=== PATIENT | male | born 1950 | race Caucasian/White ===

== ENCOUNTER 2024-09-19 06:48 | Emergency (ER) | payer MEDICARE, SELFPAY ==
[2024-09-19] VITALS (10 sets, daily range): BP systolic 164–203; BP diastolic 81–116; BMI 26.3
[2024-09-19] MEDS: DEXTROSE 50% SYRINGE 25 GRAMS IV (07:20)
[2024-09-19 07:24] LABS: Glucose - Point of Care 44 mg/dl (70-99)
--- NOTE | 2024-09-19 07:32 | EDRN ---
the pt was received from triage confused, and 'not making sense' per the pts son and daughter, the pt was pleasantly confused and color was yan and the pt was diaphoretic, this RN checked a blood glucose and found that the pts blood sugar was 44,
this RN immediately notified provider Polo YEN and administered an AMP of Dextrose via RFA #20 PIV that was placed, shortly after administration the pt started to come around and was alert and oriented to the situation, the pt stated to
this RN, 'I felt very confused and i was in a cold sweat, did i have hypoglycemia again?', this RN confirmed with the pt that he was hypoglycemic and was treated for it, the pt is on the monitor, VS WNL, the pt is resting in stretcher in the lowest
position, side rails up x2, call ponce within reach, HOB elevated, will continue to monitor the pt closely
[2024-09-19 07:33] LABS: % Basophils 0.5 % (0-2); % Eosinophils 2.6 % (0-6); % Immature Granulocytes 0.5 % (0-0.5); % Lymphocytes 13.3 % (20.5-51.1); % Monocytes 6.1 % (1.7-9.3); Absolute Basophils 0.1 10^3/uL (0-0.2); Absolute Eosinophils 0.3 10^3/uL (0-0.7); Absolute Immature Granulocytes 0.1 10^3/uL (0-0.05); Absolute Lymphocytes 1.5 10^3/uL (1.2-3.4); Absolute Monocytes 0.7 10^3/uL (0.1-0.6); Absolute Neutrophils 8.7 10^3/uL (1.4-6.5); Hematocrit 26.2 % (39.0-52.0); Hemoglobin 9.4 g/dL (13.0-18.0); Mean Corp Hgb Conc. 35.9 g/dL (33.0-37.0); Mean Corpuscular Hgb 30.2 pg (27.0-31.0); Mean Corpuscular Volume 84.2 fL (80.0-94.0); Mean Platelet Volume 9.4 fL (7.4-10.4); Nucleated Red Blood Cells % 0 % (-); Platelet Count 234 10^3/uL (130-400); Red Blood Cell Count 3.11 10^6/uL (4.70-6.10); Red Cell Dist. Width 13.5 % (11.5-14.5); White Blood Cell Count 11.2 10^3/uL (4.8-10.8)
[2024-09-19 07:45] LABS: Glucose - Point of Care 180 mg/dl (70-99)
--- NOTE | 2024-09-19 07:47 | EDRN ---
Polo YEN currently at the pts bedside speaking to the pt and the pts family, the pt admits to taking Basaglar 80units SC two hours before arriving to the ED and claims he has not eaten anything, an ER lunch box was provided to the pt per
provider
[2024-09-19 08:01] LABS: ALT (SGPT) 25 U/L (0-50); AST (SGOT) 26 U/L (17-59); Albumin 4.8 g/dl (3.5-5.0); Alkaline Phosphatase 100 U/L (38-126); Blood Urea Nitrogen 50 mg/dl (9-20); Calcium 9.7 mg/dl (8.4-10.2); Carbon Dioxide 19 mmol/L (22-30); Chloride 109 mmol/L (98-107); Estimated Creatinine Clearance 12 ml/min; Glucose 41 mg/dl (70-99); Potassium 3.6 mmol/L (3.5-5.1); Sodium 145 mmol/L (135-145); Total Bilirubin 0.9 mg/dl (0.2-1.3); Total Protein 7.6 g/dl (6.3-8.2); eGFR 11.13
[2024-09-19 08:04] LABS: Glucose - Point of Care 132 mg/dl (70-99)
--- NOTE | 2024-09-19 08:21 | ED.GENMED ---
History of Present Illness
General
Chief Complaint: Change in Mental Status
Source: patient and family
Time Seen by Provider: 09/19/24 07:06
History of Present Illness
History of Present Illness:
73-year-old male with past medical history of hypertension, diabetes, chronic kidney disease, previous TIA presenting to the ER with family reporting altered mental status this morning that was noted around 5 AM. Patient lives with daughter who
states that she found the patient in bed, not answering questions and moaning. On arrival here patient with similar disposition, [id number] glucose was checked and found to be in the low 30s. Patient treated with dextrose with improvement. By
the time I was able to get into the room patient was fully awake alert and oriented and had no concerns. Patient does note that he saw his primary care provider about a week or so ago and due to worsening kidney dysfunction was to of his metformin.
It was noted at that time patient also had significantly elevated blood pressures and had his nifedipine increased and was recommended to follow-up with nephrology. Patient states he did call the office but was unable to speak to anybody so was
unfortunately unable to make an appointment but states he was planning on calling today in follow-up. Patient denies any fevers, chills, rigors. He does state that he took his 80 units of Basaglar this morning around 2 to 3 hours prior to coming
to the ER but did not eat anything after taking the Basaglar.
Past History
Past History
ED Past Medical History: CVA, HTN, IDDM and Renal failure
ED Past Surgical History: None
Social History
Tobacco: Non-smoker
Alcohol: None
Drug: None
Living: with family
Employment: Not employed
Review of Systems
Review of Systems
All Other Systems: ROS reviewed and negative except as documented in HPI and ROS
Phy Exam
Physical Exam
Physical Exam:
GENERAL: Alert , in no apparent distress
HEAD: NCAT
EYE: clear conjunctiva
NECK: Supple
ENT: mmm.
CARDIAC: Regular rate and rhythm .
LUNGS: Clear breath sounds bilaterally, no acute respiratory distress, no wheezes/rales/rhonchi
ABDOMEN: Soft, without focal tenderness, no r/g, no cvat
NEUROLOGICAL: Alert and oriented, no focal neuro deficits, AAOx3
SKIN: Warm and dry, skin intact.
MUSCULOSKELETAL: No edema, well perfused.
PSYCH: Normal and appropriate interaction.
Scores
Heart Failure Risk
Heart Failure Risk Score: Not Applicable
Heart Score for Chest Pain Patients
STEMI patient?: Not applicable
Withdrawal Assessment of Alcohol
Withdrawal Assessment Completed?: Not applicable
Course
Orders/Labs/Results
Orders:
Orders
09/19/24 07:17
Electrocardiogram (*1) Urgent
Reason for Study: Vertigo / Dizzy
EKG- Treatment ONCE
09/19/24 07:20
Dextrose 50%-Water [Dextrose 50% Syringe] 25 grams IV NOW STA
09/19/24 07:22
Complete Blood Count/With Diff Urgent
Comprehensive Metabolic Panel Urgent
09/19/24 07:24
Dextrose 50%-Water [Dextrose 50% Syringe] 25 grams .ROUTE .STK-MED ONE
09/19/24 09:30
Urinalysis Reflex To Culture Urgent
Date Specimen was Collected: 09/19/24
Time Specimen was Collected: 09:25
Urine Microscopic Reflex Cult Urgent
09/19/24 10:15
Bedside Glucose- Treatment ONCE
Abnormal Lab Results
09/19/24 09/19/24 09/19/24
07:20 07:22 07:43
WBC 11.2 H 10^3/uL
(4.8-10.8)
RBC 3.11 L 10^6/uL
(4.70-6.10)
Hgb 9.4 L g/dL
(13.0-18.0)
Hct 26.2 L %
(39.0-52.0)
Abs Immat Gran (auto) 0.1 H 10^3/uL
(0-0.05)
Absolute Neuts (auto) 8.7 H 10^3/uL
(1.4-6.5)
Absolute Monos (auto) 0.7 H 10^3/uL
(0.1-0.6)
Neutrophils % 77.0 H %
(42.2-75.2)
Lymphocytes % 13.3 L %
(20.5-51.1)
Chloride 109 H mmol/L
(98-107)
Carbon Dioxide 19 L mmol/L
(22-30)
BUN 50 H mg/dl
(9-20)
Creatinine 5.2 H* mg/dL
(0.7-1.3)
Glucose 41 L* mg/dl
(70-99)
Ur Occult Blood Reflex
Urine RBC
Urine Bacteria (Reflex)
Urine Glucose
Urine Albumin (Reflex)
POC Glucose 44 L* mg/dl 180 H mg/dl
(70-99) (70-99)
09/19/24 09/19/24 09/19/24
08:03 09:09 09:30
WBC
RBC
Hgb
Hct
Abs Immat Gran (auto)
Absolute Neuts (auto)
Absolute Monos (auto)
Neutrophils %
Lymphocytes %
Chloride
Carbon Dioxide
BUN
Creatinine
Glucose
Ur Occult Blood Reflex 1+ A
(Negative)
Urine RBC 3-6 A /HPF
(0-2)
Urine Bacteria (Reflex) Few A
(Negative)
Urine Glucose 1+ A
(Negative)
Urine Albumin (Reflex) 3+ A
(Neg - Trace)
POC Glucose 132 H mg/dl 141 H mg/dl
(70-99) (70-99)
09/19/24
10:16
WBC
RBC
Hgb
Hct
Abs Immat Gran (auto)
Absolute Neuts (auto)
Absolute Monos (auto)
Neutrophils %
Lymphocytes %
Chloride
Carbon Dioxide
BUN
Creatinine
Glucose
Ur Occult Blood Reflex
Urine RBC
Urine Bacteria (Reflex)
Urine Glucose
Urine Albumin (Reflex)
POC Glucose 219 H mg/dl
()
09/19/24 07:22
09/19/24 07:22
Vital Signs
Initial and Last Documented VS:
Initial Vital Signs
Temp Pulse Resp BP Pulse Ox
98.3 F 63 18 175/81 96
09/19/24 06:52 09/19/24 06:52 09/19/24 06:52 09/19/24 06:52 09/19/24 06:52
Last Documented Vital Signs
Temp Pulse Resp BP Pulse Ox
98.5 F 76 19 164/97 99
09/19/24 07:34 09/19/24 10:30 09/19/24 10:30 09/19/24 10:09 09/19/24 10:30
MDM/Problems Addressed
Differential Diagnosis Includes:
Hypoglycemia secondary to too much insulin, less concern for an infectious etiology, chronic kidney disease, hypertension
MDM/Problems Addressed:
73-year-old male presenting to the emergency department for evaluation of change in mental status found to have hypoglycemia on arrival. This was rapidly corrected with 25g dextrose with significant improvement in patient's symptoms. Following the
dextrose patient is fully awake alert and oriented x 3. There are certainly multiple chronic medical conditions playing a role in patient's visit to the ER. Will observe for any further signs of recurring hypoglycemia. Patient was given a food
tray. He is otherwise stable and in no acute distress.
Chronic conditions affecting care: DM and HTN
Acute Exacerbation and/or Progression of Chronic Illness: DM
*Pulse Oximetry
Patient hypoxic: no
*EKG
Interpreted by ED Provider?: Yes
Comparison EKG: no comparison EKG present
Heart Rate: 61
Rate: normal
Rhythm: sinus
Interval: first degree heart block
*Drying Room Supervisor Interpretation
Rate: normal
Rhythm: sinus
*Critical Care Note
Total Time (30-74mins, 75-104mins- exclusive of procedures): Not Applicable
Patient Management
Escalation/DeEscalation of care consider admission/obs:
On multiple rechecks patient's blood sugars remain greater than 120. He continues to feel well and is asking to be discharged home. Discussed with patient that if he is going to be giving himself insulin he needs to check his blood sugars before
taking the insulin as well as needs to either eat or drink something to counteract the insulin and prevent him from dropping his blood sugars too low patient will follow-up with his primary care provider as well as nephrology. Family taking patient
home and they are aware of return precautions.
ED Attending Note
-
Portions of this chart may have been created with voice recognition software.� Occasional wrong word or��sound alike� substitutions may have occurred due to the inherent limitations of voice recognition software.
Discharge Plan
Departure
Patient Disposition: Home (Routine Discharge)
Date of Disposition: 09/19/24
Time of Disposition: 10:31
Patient with high blood pressure during this ER visit?: Yes
Discharge Problem:
Hypoglycemia due to insulin, Hypertension, CKD (chronic kidney disease)
Instructions: Low Blood Sugar, Adult ED
Prescriptions:
No Action
clindamycin HCl 300 mg Capsule
300 mg PO TID
atorvastatin 10 mg Tablet
10 mg PO DAILY
clonidine HCl 0.3 mg Tablet
0.3 mg PO DAILY
nifedipine 30 mg Tablet Extended Release
30 mg PO DAILY
chlorthalidone 25 mg Tablet
25 mg PO DAILY
omeprazole 20 mg Capsule,Delayed Release(Dr/Ec)
20 mg PO DAILY
irbesartan 300 mg Tablet
300 mg PO DAILY
insulin glargine [Basaglar KwikPen U-100 Insulin] 100 unit/mL (3 mL) Insulin Pen
80 unit SC QPM
metoprolol succinate 200 mg Capsule,Sprinkle,Er 24hr
200 mg PO DAILY
acetaminophen [Tylenol] 325 mg Tablet
650 mg PO Q4HPRN PRN (Reason: mild pain)
Referrals:
Tomer Childress MD [Active] - (Nephrology)
Tesfaye Hernandez MD [Family Provider] -
Interventions
Interventions:
*Risk Screen - Suicide Last Done: 09/19/24 07:34
*General Assessment Last Done: 09/19/24 07:34
*Neglect/Abuse Screening Last Done: 09/19/24 07:34
ED- Fall Risk Assessment Last Done: 09/19/24 07:34
*ED COVID-19 Vaccine History Last Done: 09/19/24 06:57
*Nursing Disposition Last Done: 09/19/24 10:36
ED- Pulmonary Assessment Last Done: 09/19/24 07:34
ED-Psychological Assessment Last Done: 09/19/24 07:34
ED- Neurological Assessment Last Done: 09/19/24 07:34
ED- Cardiac Assessment Last Done: 09/19/24 07:34
ED Swallowing Screen Last Done: 09/19/24 07:34
Discharge Date and Time
Discharge Date/Time: 09/19/24 10:37
Print Language: ROMANSH
[2024-09-19 09:10] LABS: Glucose - Point of Care 141 mg/dl (70-99)
--- NOTE | 2024-09-19 09:10 | EDRN ---
the pt is resting in stretcher in the lowest position, side rails up x1, HOB elevated, no s/s of distress, the pt is on the monitor, the pt is hypertensive and Polo YEN was notified, the pt was able to ambulate to the bathroom
independently with no issues and was able to provide a urine sample, will continue to monitor the pt closely
[2024-09-19 09:44] LABS: Urine Albumin 3+ (Neg - Trace); Urine Bilirubin Negative (Negative); Urine Character Clear (Clear); Urine Color Yellow; Urine Glucose 1+ (Negative); Urine Ketone Negative (Negative); Urine Leukocyte Negative (Negative); Urine Nitrite Negative (Negative); Urine Occult Blood 1+ (Negative); Urine Specific Gravity 1.015 (<1.030); Urine Urobilinogen Negative (Neg - 1+)
--- NOTE | 2024-09-19 09:52 | EDRN ---
the pt is currently still hypertensive, provider Polo Crooks was notified, the pt states to this RN, 'Can i leave yet i am just up and ready to go', this RN notified the pt that he will be here for at least another half hour per the provider,
the pt is agreeable to this, will continue to monitor the pt closely
[2024-09-19 10:18] LABS: Glucose - Point of Care 219 mg/dl (70-99)
[2024-09-19 10:24] LABS: Urine Bacteria Few (Negative)
== END 2024-09-19 10:37 | disposition home or self-care (01) ==
LOC: EMR 06:48
PROVIDERS: Physician Assistant Medical; EMERGENCY PHYSICIAN Student in an Organized Health Care Education/Training Program; FAMILY PHYSICIAN Internal Medicine
DX: E11.649 Type 2 diabetes mellitus with hypoglycemia without coma (principal); T38.3X5A Adverse effect of insulin and oral hypoglycemic [antidiabetic] drugs, initial encounter; Z79.4 Long term (current) use of insulin; E11.22 Type 2 diabetes mellitus with diabetic chronic kidney disease; I12.9 Hypertensive chronic kidney disease with stage 1 through stage 4 chronic kidney disease, or unspecified chronic kidney disease; N18.9 Chronic kidney disease, unspecified; Z86.73 Personal history of transient ischemic attack (TIA), and cerebral infarction without residual deficits
CPT/HCPCS: 99284; 96374; 80053; 81003; 81015; 82962; 85025; 93005

== ENCOUNTER 2024-10-19 20:14 | Inpatient (IN) | payer MEDICARE, SELFPAY ==
[2024-10-19] VITALS (13 sets, daily range): BP systolic 113–212; BP diastolic 59–83; BMI 20.4
[2024-10-19 13:55] LABS: Glucose - Point of Care > 600 mg/dl (70-99)
[2024-10-19 14:19] LABS: % Basophils 0.5 % (0-2); % Eosinophils 2.6 % (0-6); % Immature Granulocytes 0.3 % (0-0.5); % Lymphocytes 10.4 % (20.5-51.1); % Monocytes 8.9 % (1.7-9.3); % Neutrophils 77.3 % (42.2-75.2); Absolute Eosinophils 0.2 10^3/uL (0-0.7); Absolute Lymphocytes 0.7 10^3/uL (1.2-3.4); Absolute Monocytes 0.6 10^3/uL (0.1-0.6); Absolute Neutrophils 5.1 10^3/uL (1.4-6.5); Hematocrit 24.6 % (39.0-52.0); Hemoglobin 9.1 g/dL (13.0-18.0); Mean Corpuscular Hgb 30.1 pg (27.0-31.0); Mean Corpuscular Volume 81.5 fL (80.0-94.0); Mean Platelet Volume 9.7 fL (7.4-10.4); Nucleated Red Blood Cells % 0 % (-); Platelet Count 224 10^3/uL (130-400); Red Blood Cell Count 3.02 10^6/uL (4.70-6.10); Red Cell Dist. Width 11.9 % (11.5-14.5); White Blood Cell Count 6.6 10^3/uL (4.8-10.8)
[2024-10-19 14:48] LABS: Albumin 4.5 g/dl (3.5-5.0); Alkaline Phosphatase 123 U/L (38-126); Blood Urea Nitrogen 62 mg/dl (9-20); Calcium 9.4 mg/dl (8.4-10.2); Carbon Dioxide 17 mmol/L (22-30); Chloride 92 mmol/L (98-107); Sodium 126 mmol/L (135-145); eGFR 9.37
[2024-10-19 14:49] LABS: ALT (SGPT) 18 U/L (0-50); AST (SGOT) 17 U/L (17-59); Total Bilirubin 1.2 mg/dl (0.2-1.3)
[2024-10-19 15:04] LABS: Glucose 835 mg/dl (70-99)
--- NOTE | 2024-10-19 16:20 | ED.GENMED ---
History of Present Illness
General
Chief Complaint: Blood Sugar Problem
Time Seen by Provider: 10/19/24 15:27
History of Present Illness
History of Present Illness:
Patient is a 73-year-old male with history of diabetes on insulin, stage V CKD with plans for dialysis, hypertension presenting to the emergency room with elevated blood sugar. Patient states he went to his primary care doctor today as he notes
that his leg has been having some cramping and twitches. He does state that he feels dehydrated. When he went to his primary care his blood sugar was over 400. He states that he has been without his insulin for the past 10 days. He is on
glargine. No adding sliding scale. He has been in DKA once before. He states that he feels dehydrated but otherwise denies any chest pain difficulty breathing nausea vomiting. No recent illnesses or infections.
Past History
Past History
ED Past Medical History: CVA, HTN, IDDM and Renal failure
ED Past Surgical History: None
Social History
Tobacco: Non-smoker
Alcohol: None
Drug: None
Living: with family
Employment: Not employed
Phy Exam
Physical Exam
Physical Exam:
GENERAL: in no acute distress
HEENT: normocephalic, extraocular movements intact, dry oral mucosa
NECK: normal inspection
RESPIRATORY: no respiratory distress, clear to auscultation bilaterally
CARDIOVASCULAR: regular rate and rhythm
ABDOMEN/: soft, non-distended, non-tender to palpation, no rebound or guarding
EXTREMITIES: non-tender, no edema/swelling
NEUROLOGIC: awake and alert, moves all extremities
SKIN: warm
Course
Orders/Labs/Results
Orders:
Orders
10/19/24 14:03
B-Hydroxybutyrate Urgent
Comment: ADD ON
Complete Blood Count/With Diff Urgent
Comprehensive Metabolic Panel Urgent
10/19/24 15:29
Add On- LAB Urgent
Tests Added?: beta hydroxybuterate
10/19/24 16:04
0.9% Sodium Chloride 1000 ml [Nss] 1,000 ml IV BOLUS
10/19/24 16:25
Urinalysis Reflex To Culture Urgent
Date Specimen was Collected: 10/19/24
Time Specimen was Collected: 16:22
Urine Microscopic Reflex Cult Urgent
Abnormal Lab Results
10/19/24 10/19/24 10/19/24
13:54 14:03 16:25
RBC 3.02 L 10^6/uL
(4.70-6.10)
Hgb 9.1 L g/dL
(13.0-18.0)
Hct 24.6 L %
(39.0-52.0)
Absolute Lymphs (auto) 0.7 L 10^3/uL
(1.2-3.4)
Neutrophils % 77.3 H %
(42.2-75.2)
Lymphocytes % 10.4 L %
(20.5-51.1)
Sodium 126 L mmol/L
(135-145)
Chloride 92 L mmol/L
(98-107)
Carbon Dioxide 17 L mmol/L
(22-30)
BUN 62 H mg/dl
(9-20)
Creatinine 6.0 H* mg/dL
(0.7-1.3)
Glucose 835 H* mg/dl
(70-99)
Ur Occult Blood Reflex 2+ A
(Negative)
Urine Bacteria (Reflex) Few A
(Negative)
Urine Glucose 3+ A
(Negative)
Urine Albumin (Reflex) 3+ A
(Neg - Trace)
POC Glucose > 600 H* mg/dl
(70-99)
10/19/24 14:03
10/19/24 14:03
Vital Signs
Initial and Last Documented VS:
Initial Vital Signs
Temp Pulse Resp BP Pulse Ox
98.1 F 55 18 189/83 100
10/19/24 13:48 10/19/24 13:48 10/19/24 13:48 10/19/24 13:48 10/19/24 13:48
Last Documented Vital Signs
Temp Pulse Resp BP Pulse Ox
98.1 F 63 14 212/81 100
10/19/24 13:48 10/19/24 16:30 10/19/24 16:30 10/19/24 16:00 10/19/24 13:48
MDM/Problems Addressed
Differential Diagnosis Includes:
Patient is a 73-year-old male with history of diabetes, CKD presenting to the emergency department elevated blood sugar. Vitals are notable for hypertension and exam does show dry oral mucosa. Concern for DKA versus metabolic derangement versus
hyperglycemia secondary to medication noncompliance. Blood work obtained prior to evaluation does show elevated blood sugar with anion gap and slightly low bicarb. I did add on beta hydroxybutyrate as well as ketone. Given patient's CKD will give
him just 1 bolus to start.
*Critical Care Note
Total Time (30-74mins, 75-104mins- exclusive of procedures): Not Applicable
Update Note
Update Note:
Patient does not have any ketones in the urine. Beta hydroxybutyrate pending. Given that he has some component of DKA but not all I discussed with insulin drip versus subcu insulin. Will defer to hospitalist recommendations.
ED Attending Note
-
Portions of this chart may have been created with voice recognition software.� Occasional wrong word or��sound alike� substitutions may have occurred due to the inherent limitations of voice recognition software.
Discharge Plan
Departure
Patient Disposition: Admit
Date of Disposition: 10/19/24
Time of Disposition: 17:31
Presentation/result/management discussed w/ accepting MD/DO: Hospitalist
Discharge Problem:
Hyperglycemia
Prescriptions:
No Action
atorvastatin 10 mg Tablet
10 mg PO QPM
clonidine HCl 0.3 mg Tablet
0.3 mg PO QPM
chlorthalidone 25 mg Tablet
25 mg PO QPM
omeprazole 20 mg Capsule,Delayed Release(Dr/Ec)
20 mg PO QPM
irbesartan 300 mg Tablet
300 mg PO QPM
insulin glargine [Basaglar KwikPen U-100 Insulin] 100 unit/mL (3 mL) Insulin Pen
80 unit SC HS
metoprolol succinate 200 mg Capsule,Sprinkle,Er 24hr
200 mg PO QPM
nifedipine 90 mg Tablet Extended Release
90 mg PO QPM
Referrals:
Tesfaye Hernandez MD [Family Provider] -
Interventions
Interventions:
*Risk Screen - Suicide Last Done: 10/19/24 13:48
*General Assessment Last Done: 10/19/24 13:48
*Neglect/Abuse Screening Last Done: 10/19/24 13:48
ED- Fall Risk Assessment Last Done: 10/19/24 15:34
*ED COVID-19 Vaccine History Last Done: 10/19/24 15:34
ED- Neurological Assessment Last Done: 10/19/24 15:34
Discharge Date and Time
Print Language: LITHUANIAN
[2024-10-19] MEDS: NSS 1000 IV (16:21)
[2024-10-19 16:47] LABS: Urine Albumin 3+ (Neg - Trace); Urine Bilirubin Negative (Negative); Urine Character Clear (Clear); Urine Color Yellow; Urine Glucose 3+ (Negative); Urine Ketone Negative (Negative); Urine Leukocyte Negative (Negative); Urine Nitrite Negative (Negative); Urine Occult Blood 2+ (Negative); Urine Urobilinogen Negative (Neg - 1+)
[2024-10-19 17:19] LABS: Urine Bacteria Few (Negative); Urine Red Blood Cell 0-2 /HPF (0-2); Urine Squamous Cell 0-2 /LPF (Few)
[2024-10-19 17:20] LABS: Urine Granular Cast 0-2 /LPF (0)
[2024-10-19 17:51] LABS: B-Hydroxybutyrate 0.51 mmol/L (0.02-0.27)
[2024-10-19 18:28] LABS: Glucose - Point of Care > 600 mg/dl (70-99)
--- NOTE | 2024-10-19 18:41 | HPS.HSE ---
Family Physician
-
Family Physician: Tesfaye Hernandez
Chief Complaint
-
Elevated Blood Glucose
History of Present Illness
Patient is a 73 y/o male past medical history of diabetes mellitus, HTN and CKD who presents with elevated blood sugar. Patient reports he ran out of insulin 10 days ago as his copay was $70 instead of $35. Patient does not check his sugars at
home. He noted some tremors in his left leg over the past few days so his family brought him to see his PCP. PCP checked his sugar in the office which reports as 'Hi' and he was sent to the emergency department for evaluation. In the ED his
initial sugar was 835. Patient reports associated polyuria and polydipsia.
Medical History
Past Medical History
Past Medical History: Reports Other
Additional Past Medical History:
Diabetes Mellitus
Hypertension
Hyperlipidemia
CKD Stage V
Anemia of Chronic Disease
Past Surgical History: Reports None
Social History
Tobacco: Non-smoker
Alcohol: None
Drug: None
Family History
Family History: Not pertinent
Allergies / Home Medications
Allergies reflects when Allergies were last updated in [facility].
Home Medications with original date entered in [facility]
Allergy/Medication List:
Allergies
Allergy/AdvReac Type Severity Reaction Status Date / Time
Penicillins Allergy Unknown Verified 10/19/24 13:48
Home Medications
atorvastatin 10 mg tablet 10 mg PO QPM High Cholesterol 09/19/24
chlorthalidone 25 mg tablet 25 mg PO QPM Blood Pressure 09/19/24
clonidine HCl 0.3 mg tablet 0.3 mg PO QPM Blood Pressure 09/19/24
insulin glargine 100 unit/mL (3 mL) subcutaneous pen (Basaglar KwikPen U-100 Insulin) 80 unit SC HS Diabetes 09/19/24
irbesartan 300 mg tablet 300 mg PO QPM Blood Pressure 09/19/24
metoprolol succinate 200 mg capsule sprinkle, ext. release 24 hr 200 mg PO QPM Blood Pressure 09/19/24
omeprazole 20 mg capsule,delayed release 20 mg PO QPM Gastrointestinal Issue 09/19/24
nifedipine 90 mg tablet,extended release 90 mg PO QPM 10/19/24
Review of Systems
-
A 12 point ROS was completed and negative except as noted: Yes
Constitutional: Denies Fever or Chills
Respiratory: Denies Cough or Trouble Breathing
Cardiac: Denies Chest Pain or Palpitations
Abdomen/GI: Denies Abdominal Pain, Nausea, Vomiting or Diarrhea
Physical Exam
Vital Signs
Vital Signs
Temp Pulse Resp BP Pulse Ox
98.1 F 67 14 182/83 100
10/19/24 13:48 10/19/24 18:00 10/19/24 18:00 10/19/24 18:00 10/19/24 13:48
Physical Exam
General: Comfortable and Conversant
HEENT: NormoCephalic, Anicteric and Atraumatic
Respiratory: Clear and Non Labored Respirations
Cardiac: S1/S2 and Regular Rhythm
GI: Soft and Non Tender
Genito-urinary: Clear Urine
Musculoskeletal: No Clubbing, No Cyanosis and No Edema
Skin: Warm and Dry
Neuro: Awake, Alert, Oriented and Nonfocal/grossly intact
Psych: Calm
Laboratory Results
-
10/19/24 14:03
Laboratory Results
Total Bilirubin 1.2 mg/dl (0.2-1.3) 10/19/24 14:03
AST 17 U/L (17-59) 10/19/24 14:03
ALT 18 U/L (0-50) 10/19/24 14:03
Alkaline Phosphatase 123 U/L (38-126) 10/19/24 14:03
Data Reviewed
-
Lab Data: Labs Reviewed by me
Impression/Plan
-
Uncontrolled Diabetes Mellitus, with mild DKA - Initial Gap 17
-Give Insulin 10 units IV NOW
-Repeat BMP follow 1L NSS given in ED shows improving gap down to 14
-Resume Lantus 80 units HS with first dose now
-Monitors sugars and continue high coverage insulin
-Check HgbA1c
-Consult Roll Machine Operator for insulin management and education in regards to check sugars at home
Uncontrolled Hypertension
-Give Now dose of clonidine, irbesartan, metoprolol and nifedipine
-Hold chlorthalidone
-Consult Nephrology for BP management
CKD Stage V
-Consult Nephrology
-Monitor Is&Os and Daily Weights
Anemia of Chronic Disease
-Hgb at baseline
Hyperlipidemia
-Continue atorvastatin
DVT proph: SC Heparin
Code Status: Full Code
[2024-10-19] MEDS: CATAPRES 0.3 MG PO (19:01)
[2024-10-19] MEDS: AVAPRO 300 MG PO (19:01)
[2024-10-19] MEDS: TOPROL XL 200 MG PO (19:01)
[2024-10-19] MEDS: PROCARDIA XL (EXTENDED RELEASE) 90 MG PO (19:01)
[2024-10-19] MEDS: NOVOLIN R 10 UNITS IV (19:05)
[2024-10-19 19:10] LABS: Blood Urea Nitrogen 59 mg/dl (9-20); Calcium 8.8 mg/dl (8.4-10.2); Carbon Dioxide 16 mmol/L (22-30); Chloride 98 mmol/L (98-107); Estimated Creatinine Clearance 10 ml/min; Glucose 676 mg/dl (70-99); Potassium 4.6 mmol/L (3.5-5.1); Sodium 128 mmol/L (135-145); eGFR 10.18
[2024-10-19] MEDS: LR 1000 IV (19:41)
[2024-10-19 19:45] LABS: Glucose - Point of Care 554 mg/dl (70-99)
[2024-10-19] MEDS: LANTUS 0.8 UNITS SC (19:54)
[2024-10-19 20:12] LABS: Blood Urea Nitrogen 61 mg/dl (9-20); Calcium 8.9 mg/dl (8.4-10.2); Carbon Dioxide 14 mmol/L (22-30); Chloride 99 mmol/L (98-107); Estimated Creatinine Clearance 11 ml/min; Glucose 581 mg/dl (70-99); Potassium 3.9 mmol/L (3.5-5.1); Sodium 132 mmol/L (135-145); eGFR 10.88
[2024-10-19 21:40] LABS: Glucose - Point of Care 451 mg/dl (70-99)
[2024-10-19 23:03] LABS: Blood Urea Nitrogen 60 mg/dl (9-20); Calcium 8.9 mg/dl (8.4-10.2); Carbon Dioxide 20 mmol/L (22-30); Chloride 100 mmol/L (98-107); Estimated Creatinine Clearance 10 ml/min; Glucose 413 mg/dl (70-99); Magnesium 2.1 mg/dl (1.6-2.3); Sodium 131 mmol/L (135-145)
[2024-10-19] MEDS: SODIUM BICARBONATE 50 MEQ IV (23:33)
[2024-10-19] MEDS: NOVOLOG FLEXPEN 14 UNITS SC (23:33)
[2024-10-19] MEDS: HEPARIN SC (23:34)
[2024-10-20] VITALS (7 sets, daily range): BP systolic 95–181; BP diastolic 56–87; PULSE 58–70; BMI 20.3
[2024-10-20 03:20] LABS: Glucose - Point of Care 182 mg/dl (70-99)
[2024-10-20] MEDS: LR 1000 IV (06:17)
[2024-10-20 06:56] LABS: Hematocrit 22.9 % (39.0-52.0); Hemoglobin 8.5 g/dL (13.0-18.0); Mean Corp Hgb Conc. 37.1 g/dL (33.0-37.0); Mean Corpuscular Hgb 30.7 pg (27.0-31.0); Mean Corpuscular Volume 82.7 fL (80.0-94.0); Mean Platelet Volume 9.5 fL (7.4-10.4); Platelet Count 229 10^3/uL (130-400); Red Blood Cell Count 2.77 10^6/uL (4.70-6.10); White Blood Cell Count 9.3 10^3/uL (4.8-10.8)
[2024-10-20 07:43] LABS: Blood Urea Nitrogen 59 mg/dl (9-20); Calcium 9.3 mg/dl (8.4-10.2); Carbon Dioxide 22 mmol/L (22-30); Chloride 105 mmol/L (98-107); Estimated Creatinine Clearance 10 ml/min; Glucose 54 mg/dl (70-99); Magnesium 2.1 mg/dl (1.6-2.3); Potassium 3.1 mmol/L (3.5-5.1); Sodium 140 mmol/L (135-145); eGFR 9.97
--- NOTE | 2024-10-20 08:07 | W.PN.UPDATE ---
Update Note
Progress Note Update
Patient seen in conjunction with TOOL CHECKER. I agree with the findings on history and physical. I concur with the assessment and plan unless stated otherwise.
Briefly this is a 73-year-old with advanced CKD, insulin-dependent diabetes hypertension and GERD who presents to the emergency department with hyperglycemia. Patient feels to feel is insulin due to bureaucratic issues. Has been off insulin for
several days now. Measured blood glucose was reading high and patient was sent to the ED. He was otherwise asymptomatic.
On arrival in the ED she was hypertensive but otherwise vital signs were stable. He had blood glucose of 835, anion gap was 17, his potassium was 5.0 and creatinine was 6.0 which are similar to his baseline with slight worsening. CBC has no
remarkable change from prior. He is beta-hydroxybutyrate was 0.5.
Assessment
Patient with mostly HHS with mild anion gap acidosis and minimal elevation in ketones. Acidosis likely mixed renal and diabetic. Responded to bolus of iv fluid and 10 units of insulin. Held off on insulin gtt for now.
- admit to telemetry
- restart patient on lantus with sliding scale coverage
CKD - Cr 6, mild progression if any, no acute indication for renal replacement. Not following outpatient nephrology.
- nephrology consultation
- iv fluids overnight given likley mild dehydration
HTN -
- stopped chlorthalidone given extent of renal disease
- continue irbesartan for now, continue metoprolol and nifedipine
- continue clonidine
DVT PPX - hepariin sq
Code status - full code
[2024-10-20 08:16] LABS: Glucose - Point of Care 69 mg/dl (70-99)
[2024-10-20 08:43] LABS: Glucose - Point of Care 97 mg/dl (70-99)
[2024-10-20] MEDS: NOVOLOG FLEXPEN-HIGH RESISTANCE SC (09:00)
[2024-10-20 09:21] LABS: Iron 93 ug/dl (49-181)
[2024-10-20 09:30] LABS: Percent Saturation 42 % (20-50); Total Iron Binding Capacity 218 ug/dl (261-462)
[2024-10-20] MEDS: KCL 40 MEQ PO (09:36)
[2024-10-20] MEDS: HEPARIN 5000 UNITS SC ×2 (09:37→17:54)
[2024-10-20 10:18] LABS: Glucose - Point of Care 258 mg/dl (70-99)
[2024-10-20 11:04] LABS: Folate 11.4 ng/ml (2.76-20); Vitamin B12 736 pg/ml (239-931)
[2024-10-20 12:26] LABS: Glucose - Point of Care 310 mg/dl (70-99)
--- NOTE | 2024-10-20 12:40 | W.PN.HOSP.TC ---
Today's Communication/Plan
-
Adjusted insulin
Monitor for hypo-/hyperglycemia
Monitor blood pressure
Nephrology evaluation
Assessment / Plan
Assessment / Plan
Uncontrolled Diabetes Mellitus, secondary to noncompliance
-A1c significantly elevated at 12
-Resume Lantus 80 units HS with first dose now
-Monitors sugars and continue high coverage insulin. Will start patient on NovoLog 7 units and we will further uptitrate based on insulin requirements.
-Consult Dumpster Driver for insulin management and education in regards to check sugars at home-on Tuesday
Uncontrolled Hypertension
-Give Now dose of clonidine, irbesartan, metoprolol and nifedipine
-Hold chlorthalidone
-BP improved to 142/80.
-Restart diuretics per nephro.
COLLIN on CKD Stage V
Anion gap metabolic acidosis
Hypokalemia
-Consult Nephrology
-Monitor Is&Os and Daily Weights
-Renal bladder US
-DC further IVF.
-Monitor UOP.
-Seems to be approaching dialysis
-Bladder scan.
Anemia of Chronic Disease
-Hgb at baseline
Pseudohyponatremia secondary to hyperglycemia
-Sodium of 140
Hyperlipidemia
-Continue atorvastatin
Normocytic anemia likely anemia of chronic disease
-Appropriate iron stores, B12 and folate.
DVT proph: SC Heparin
Code Status: Full Code
Anticipated Discharge: > 48 hours
Subjective/Interval History
-
Date of Service: October 20, 2024
states ran out of insulin 10 days ago
states of leg shaking which has resolved
Objective Data
-
Labs:
Laboratory Results
10/20/24
06:40
WBC 9.3
Hgb 8.5 L
Hct 22.9 L
Plt Count 229
Sodium 140 D
Potassium 3.1 L
Chloride 105
Carbon Dioxide 22
BUN 59 H
Creatinine 5.7 H*
Glucose 54 L*
Calcium 9.3
Vital Signs:
Vital Signs
Temp Pulse Resp BP Pulse Ox
97.3 F 53 14 142/80 98
10/20/24 07:30 10/20/24 07:30 10/20/24 07:30 10/20/24 07:30 10/20/24 07:30
Physical Exam
-
General: No Apparent Distress and Cachectic
HEENT: Normocephalic, Atraumatic and Moist Mucous Membranes
Respiratory: Clear to Auscultation
Cardiac: Regular Rhythm and S1/S2; Negative Murmur, Rub or Gallop
GI: Soft, Nontender, Nondistended and Normal Bowel Sounds; Negative Organomegaly
Rectal: Deferred by Provider
Musculoskeletal: No Clubbing, No Cyanosis and No Edema
Skin: Negative Rash
Neuro: Awake, Alert, Oriented, AO x 3, No Motor Deficits and Nonfocal/Grossly Intact
Psych: Calm
Data Reviewed
-
Total Time Spent with Patient (in minutes): 53
[2024-10-20] MEDS: NOVOLOG FLEXPEN-HIGH RESISTANCE 10 UNITS SC (12:49)
--- NOTE | 2024-10-20 16:42 | W.CON.NEPH ---
Consultation
-
Date/Time Consultation Requested: 10/20/24 1855
Date/Time Consultation Performed: 10/20/24 1640
Requesting Provider: Arnold Potts
Performing Provider: Milagro Jones
Reason for Consultation: COLLIN with CKD 5
Medical History
-
Chief Complaint: High BG
History of Present Illness:
73 y/o male past medical history of poorly controlled diabetes mellitus was on insulin, HTN on mutiple meds Nifedipine, Irbesartan, Metoprolol, clonidine, Chlorthalidone, HLD low dose statin and CKD last cr 5.2 in Nov not following with nephro who
presents with elevated blood sugar on 10/19. Patient reports he ran out of insulin 10 days ago as his copay was $70 instead of $35. Patient does not check his sugars at home. He noted some tremors in his left leg over the past few days so his
family brought him to see his PCP. PCP checked his sugar in the office which reports as 'Hi' and he was sent to the emergency department for evaluation. In the ED his initial sugar was 835 and noted in mild DKA. HIs cr was at 6 this admit, s/p IVF
and insulin. cr still at 5.7. Nephrology consulted for COLLIN and CKD.
He reports was recommended seeing nephrology in the past however he did not see anyone, most recently primary care told him that he has stage V kidney disease. He denies use of NSAIDs. He has microvascular complications with diabetic retinopathy
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 Follows with the [facility]. He reports compliance with his blood pressure medication however blood pressures always elevated. he currently
offers no chest pain or shortness of breath. No nausea or vomiting or abdominal pain. Denies any dysuria.
Past Medical History
Diabetes Mellitus
Hypertension
Hyperlipidemia
CKD Stage V
Anemia of Chronic Disease
Legally blind
Diabetic retinopathy
Social History
Tobacco: Non-Smoker
Alcohol: None
Drug: None
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
Family History
no ckd
Family History: Not Pertinent
Allergies / Home Medications
Allergy/AdvReac Type Severity Reaction Status Date / Time
Penicillins Allergy Unknown Verified 10/19/24 13:48
�Medication �Instructions �Recorded �Confirmed �Type
atorvastatin 10 mg tablet 10 mg PO QPM High Cholesterol 09/19/24 10/19/24 History
chlorthalidone 25 mg tablet 25 mg PO QPM Blood Pressure 09/19/24 10/19/24 History
clonidine HCl 0.3 mg tablet 0.3 mg PO QPM Blood Pressure 09/19/24 10/19/24 History
insulin glargine 100 unit/mL (3 80 unit SC HS Diabetes 09/19/24 10/19/24 History
mL) subcutaneous pen (Basaglar
KwikPen U-100 Insulin)
irbesartan 300 mg tablet 300 mg PO QPM Blood Pressure 09/19/24 10/19/24 History
metoprolol succinate 200 mg 200 mg PO QPM Blood Pressure 09/19/24 10/19/24 History
capsule sprinkle, ext. release 24
hr
omeprazole 20 mg capsule,delayed 20 mg PO QPM Gastrointestinal Issue 09/19/24 10/19/24 History
release
nifedipine 90 mg tablet,extended 90 mg PO QPM 10/19/24 10/19/24 History
release
Review of Systems
-
All complete 12 point review of system have been inquired and found negative other than stated in HPI
Physical Exam
Vital Signs
Vital Signs
Temp Pulse Resp BP Pulse Ox
98.0 F 53 16 140/73 99
10/20/24 11:00 10/20/24 11:00 10/20/24 11:00 10/20/24 11:00 10/20/24 11:00
Lab Results
WBC 9.3 10^3/uL (4.8-10.8) 10/20/24 06:40
RBC 2.77 10^6/uL (4.70-6.10) L 10/20/24 06:40
Hgb 8.5 g/dL (13.0-18.0) L 10/20/24 06:40
Hct 22.9 % (39.0-52.0) L 10/20/24 06:40
Plt Count 229 10^3/uL (130-400) 10/20/24 06:40
Sodium 140 mmol/L (135-145) D 12 06:40
Potassium 3.1 mmol/L (3.5-5.1) L 10/20/24 06:40
Chloride 105 mmol/L (98-107) 10/20/24 06:40
Carbon Dioxide 22 mmol/L (22-30) 10/20/24 06:40
BUN 59 mg/dl (9-20) H 10/20/24 06:40
Creatinine 5.7 mg/dL (0.7-1.3) H* 12 06:40
eGFR 9.97 10/20/24 06:40
Glucose 54 mg/dl (70-99) L* 10/20/24 06:40
Calcium 9.3 mg/dl (8.4-10.2) 10/20/24 06:40
Albumin 4.5 g/dl (3.5-5.0) 10/19/24 14:03
renal US:
Right kidney:
10.7 x 5.2 x 3.8 cm.
No sonographically demonstrable mass.
No shadowing renal calculus or hydronephrosis.
Left kidney:
9.5 x 5.6 x 4.4 cm.
Upper pole cyst measuring 2.9 cm.
No shadowing renal calculus or hydronephrosis.
Urinary bladder:
Underdistended. No bladder calculus identified. Bilateral ureteral jets are reproduced.
IMPRESSION:
No renal or ureteral shadowing echogenic calculus. No hydronephrosis or obstructive uropathy. Underdistended urinary bladder.
Physical Exam
General: Awake, Alert, Oriented, AOx3, No Distress and Nontoxic
HEENT: EOMI, Anicteric, Ear/Nose Intact, Facial Symmetry, Neck Supple and No JVD
Respiratory: Clear, Normal Excursion and Nonlabored Respirations
Cardiac: S1/S2 and Regular Rate/Rhythm
Breast: Deferred by me
Abdomen: Soft, Nontender and Nondistended
Musculoskeletal: No Cyanosis and No Edema
Skin: No Rash
Neuro: Nonfocal/Grossly Intact
Psych: Mood/afflect pleasant, Appropriate and Other ( poor insight)
Data Reviewed
-
Labs: Labs Reviewed by me and Discussed with Patient
Assessment/Plan
-
IMP:
Uncontrolled Diabetes Mellitus, secondary to noncompliance
Uncontrolled Hypertension
COLLIN on CKD Stage V
Anion gap metabolic acidosis
Hypokalemia
Anemia of Chronic Disease
Pseudohyponatremia secondary to hyperglycemia
Hyperlipidemia
Plan:
A/w mild DKA
Collin with CKD 5-likely from uncontrolled diabetes and hypertension
No nephrology care prior- patient did not seek
Suspect he will likely need dialysis in the future
UA with mild microhematuria, albuminuria
Renal ultrasound without hydronephrosis
Continue home blood pressure medications
if blood pressures are difficult to control likely check a renal duplex
The reviewed apart potential need of dialysis in the near future
I think he want be a candidate for PD with uncontrolled diabetes
Would likely need vascular evaluation for fistula placement
Okay to hold chlorthalidone
Replace potassium
Monitor hemoglobin, iron stores, b12, folate seem to be adequate, likely give CAMERON prior d/c
Will need follow-up nephro
[2024-10-20 17:14] LABS: Glucose - Point of Care 257 mg/dl (70-99)
[2024-10-20] MEDS: NOVOLOG FLEXPEN-HIGH RESISTANCE 7 UNITS SC (17:51)
[2024-10-20] MEDS: NOVOLOG FLEXPEN 7 UNITS SC (17:52)
[2024-10-20] MEDS: PROCARDIA XL (EXTENDED RELEASE) 90 MG PO (17:54)
[2024-10-20] MEDS: LIPITOR 10 MG PO (17:55)
[2024-10-20] MEDS: CATAPRES 0.3 MG PO (17:55)
[2024-10-20] MEDS: PROTONIX 40 MG PO (17:55)
[2024-10-20] MEDS: AVAPRO 300 MG PO (17:55)
[2024-10-20] MEDS: TOPROL XL 200 MG PO (17:56)
[2024-10-20 21:59] LABS: Glucose - Point of Care 70 mg/dl (70-99)
[2024-10-20 23:49] LABS: Glucose - Point of Care 142 mg/dl (70-99)
[2024-10-21] VITALS (9 sets, daily range): BP systolic 124–205; BP diastolic 66–88; PULSE 64–69; BMI 20.4
[2024-10-21] MEDS: LANTUS SC (01:16)
[2024-10-21] MEDS: HEPARIN SC (01:16)
[2024-10-21 03:29] LABS: Glucose - Point of Care 155 mg/dl (70-99)
[2024-10-21 07:24] LABS: % Basophils 0.8 % (0-2); % Eosinophils 4.6 % (0-6); % Immature Granulocytes 0.6 % (0-0.5); % Lymphocytes 23.1 % (20.5-51.1); % Monocytes 11.2 % (1.7-9.3); % Neutrophils 59.7 % (42.2-75.2); Absolute Eosinophils 0.2 10^3/uL (0-0.7); Absolute Lymphocytes 1.2 10^3/uL (1.2-3.4); Absolute Monocytes 0.6 10^3/uL (0.1-0.6); Absolute Neutrophils 3.1 10^3/uL (1.4-6.5); Hematocrit 22.5 % (39.0-52.0); Hemoglobin 7.9 g/dL (13.0-18.0); Mean Corp Hgb Conc. 35.1 g/dL (33.0-37.0); Mean Corpuscular Hgb 29.9 pg (27.0-31.0); Mean Corpuscular Volume 85.2 fL (80.0-94.0); Mean Platelet Volume 9.4 fL (7.4-10.4); Nucleated Red Blood Cells % 0 % (-); Platelet Count 180 10^3/uL (130-400); Red Blood Cell Count 2.64 10^6/uL (4.70-6.10); Red Cell Dist. Width 12.3 % (11.5-14.5); White Blood Cell Count 5.2 10^3/uL (4.8-10.8)
[2024-10-21 08:16] LABS: Glucose - Point of Care 165 mg/dl (70-99)
[2024-10-21 08:18] LABS: Blood Urea Nitrogen 57 mg/dl (9-20); Calcium 8.7 mg/dl (8.4-10.2); Carbon Dioxide 20 mmol/L (22-30); Chloride 108 mmol/L (98-107); Estimated Creatinine Clearance 11 ml/min; Glucose 81 mg/dl (70-99); Magnesium 2.1 mg/dl (1.6-2.3); Potassium 3.9 mmol/L (3.5-5.1); Sodium 139 mmol/L (135-145); eGFR 11.39
[2024-10-21] MEDS: NOVOLOG FLEXPEN-HIGH RESISTANCE 2 UNITS SC ×2 (09:06→16:39)
[2024-10-21] MEDS: SODIUM BICARBONATE 650 MG PO ×2 (09:06→22:10)
[2024-10-21] MEDS: NOVOLOG FLEXPEN 7 UNITS SC ×3 (09:07→16:39)
[2024-10-21] MEDS: HEPARIN 5000 UNITS SC ×3 (09:07→23:01)
--- NOTE | 2024-10-21 11:30 | W.PN.HOSP.TC ---
Today's Communication/Plan
-
po bicarb
monitor BP
renin/lynda pending
monitor POC
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
Assessment / Plan
Assessment / Plan
Uncontrolled Diabetes Mellitus, secondary to noncompliance
-A1c significantly elevated at 12
-Resume Lantus 80 units HS with first dose now
-Monitors sugars and continue high coverage insulin. Will start patient on NovoLog 7 units and we will further uptitrate based on insulin requirements.
-Consult [facility] for insulin management and education in regards to check sugars at home-on Tuesday
-POC improving. POC am 165
Uncontrolled Hypertension
-Give Now dose of clonidine, irbesartan, metoprolol and nifedipine
-Hold chlorthalidone
-BP elevated. Renin/aldosterone bloodwork pending
-Restart diuretics per nephro.
COLLIN on CKD Stage V
Anion gap metabolic acidosis
Hypokalemia
-Consult Nephrology
-Monitor Is&Os and Daily Weights
-Renal bladder US -negative for hydro. Not retaining urine.
-DC further IVF.
-Monitor UOP.
-Seems to be approaching dialysis
-started on po bicarb
-Bladder scan.
Anemia of Chronic Disease
-Hgb at baseline
Pseudohyponatremia secondary to hyperglycemia
-Sodium of 140
Hyperlipidemia
-Continue atorvastatin
Normocytic anemia likely anemia of chronic disease
-Appropriate iron stores, B12 and folate.
DVT proph: SC Heparin
Code Status: Full Code
Anticipated Discharge: 24 - 48 hours
Subjective/Interval History
-
Date of Service: October 21, 2024
states of intermittent left leg cramps
Bp elevated
Objective Data
-
Labs:
Laboratory Results
10/21/24
07:13
WBC 5.2
Hgb 7.9 L
Hct 22.5 L
Plt Count 180 D
Sodium 139
Potassium 3.9 D
Chloride 108 H
Carbon Dioxide 20 L
BUN 57 H
Creatinine 5.1 H*
Glucose 81
Calcium 8.7
Vital Signs:
Vital Signs
Temp Pulse Resp BP Pulse Ox
97.8 F 55 16 184/81 98
10/21/24 07:55 10/21/24 07:55 10/21/24 07:55 10/21/24 07:55 10/21/24 07:55
I&O
10/20/24 10/21/24 10/22/24
06:59 06:59 06:59
Intake Total 1220 / 1220
Balance 1220 / 1220
Physical Exam
-
General: No Apparent Distress and Cachectic
HEENT: Normocephalic, Atraumatic and Moist Mucous Membranes
Respiratory: Clear to Auscultation
Cardiac: Regular Rhythm and S1/S2; Negative Murmur, Rub or Gallop
GI: Soft, Nontender, Nondistended and Normal Bowel Sounds; Negative Organomegaly
Rectal: Deferred by Provider
Musculoskeletal: No Clubbing, No Cyanosis and No Edema
Skin: Negative Rash
Neuro: Awake, Alert, Oriented, AO x 3, No Motor Deficits and Nonfocal/Grossly Intact
Psych: Calm
Data Reviewed
-
Total Time Spent with Patient (in minutes): 51
[2024-10-21] MEDS: APRESOLINE 10 MG IV (11:42)
[2024-10-21] MEDS: APRESOLINE 25 MG PO (12:01)
[2024-10-21 12:28] LABS: Glucose - Point of Care 239 mg/dl (70-99)
[2024-10-21] MEDS: NOVOLOG FLEXPEN-HIGH RESISTANCE 4 UNITS SC (12:30)
--- NOTE | 2024-10-21 15:19 | W.PN.NEPH.PH ---
Today's Communication / Plan
-
renal duplex
secondary w/u of HTN
Assessment/Plan
-
IMP:
Uncontrolled Diabetes Mellitus, secondary to noncompliance
Uncontrolled Hypertension
PRINCESS on CKD Stage V
Anion gap metabolic acidosis
Hypokalemia
Anemia of Chronic Disease
Pseudohyponatremia secondary to hyperglycemia
Hyperlipidemia
Plan:
A/w mild DKA
Princess with CKD 5-likely from uncontrolled diabetes and hypertension
No nephrology care prior- patient did not seek
Suspect he will likely need dialysis in the future
UA with mild microhematuria, albuminuria
Renal ultrasound without hydronephrosis
cr slightly better at 5.1
add po bicarb for met acidosis
Continue home blood pressure medications, hydralzine added per primary
poorly controlled BPs with orthostatic hypotension-l likely from autonomic neuropathy
check a renal duplex, ARR, metanephrins, catecholamines
The reviewed apart potential need of dialysis in the near future
I think he is not candidate for PD with uncontrolled diabetes
goal BPs 150s is aceptable
Would likely need vascular evaluation for fistula placement
Okay to hold chlorthalidone
Monitor hemoglobin, iron stores, b12, folate seem to be adequate, likely give CAMERON prior d/c
Will need follow-up nephro
-
-
Date of Service: October 21, 2024
CC / HPI / ROS
-
Chief Complaint:
PRINCESS with CKD
History of Present Illness:
cr better at 5.1, bicarb 20
k normal 3.9
BP labile with +ve orthostatic
no fever
Review of Systems:
no cp or sob
left leg still RLS symp
Labs
-
Labs:
WBC 5.2 10^3/uL (4.8-10.8) 10/21/24 07:13
RBC 2.64 10^6/uL (4.70-6.10) L 10/21/24 07:13
Hgb 7.9 g/dL (13.0-18.0) L 10/21/24 07:13
Hct 22.5 % (39.0-52.0) L 10/21/24 07:13
Plt Count 180 10^3/uL (130-400) D 10/21/24 07:13
Sodium 139 mmol/L (135-145) 10/21/24 07:13
Potassium 3.9 mmol/L (3.5-5.1) D 10/21/24 07:13
Chloride 108 mmol/L (98-107) H 10/21/24 07:13
Carbon Dioxide 20 mmol/L (22-30) L 10/21/24 07:13
BUN 57 mg/dl (9-20) H 10/21/24 07:13
Creatinine 5.1 mg/dL (0.7-1.3) H* 10/21/24 07:13
eGFR 11.39 10/21/24 07:13
Glucose 81 mg/dl (70-99) 10/21/24 07:13
Calcium 8.7 mg/dl (8.4-10.2) 10/21/24 07:13
Albumin 4.5 g/dl (3.5-5.0) 10/19/24 14:03
Physical Exam
-
Vital Signs:
Vital Signs
Temp Pulse Resp BP Pulse Ox
98.1 F 57 16 193/86 100
10/21/24 11:00 10/21/24 11:00 10/21/24 11:00 10/21/24 12:01 10/21/24 11:00
Cardiovascular:: Regular rate and rhythm
Respiratory:: Bilateral: CTA
Lung Excursion:: Normal
Abdomen:: Nontender and Soft
Extremity Edema:: None: Bilateral:
Lam Catheter: No
Other Findings::
left foot DPS2+
[2024-10-21] MEDS: CATAPRES 0.3 MG PO (15:38)
[2024-10-21] MEDS: TOPROL XL 200 MG PO (15:38)
[2024-10-21] MEDS: PROCARDIA XL (EXTENDED RELEASE) 90 MG PO (15:38)
[2024-10-21] MEDS: AVAPRO 300 MG PO (15:38)
[2024-10-21 16:35] LABS: Glucose - Point of Care 194 mg/dl (70-99)
[2024-10-21] MEDS: LIPITOR 10 MG PO (17:06)
[2024-10-21] MEDS: PROTONIX 40 MG PO (17:06)
[2024-10-21] MEDS: TRANDATE 10 MG IV (17:53)
[2024-10-21] MEDS: APRESOLINE 50 MG PO (17:53)
--- NOTE | 2024-10-21 18:01 | PTCARENOTE ---
Pt BP at @ 1530 190/85. Dr. Clemente aware. 1800 Avapro, Catapres, Procardia Xl & Toprol Xl given early @ 1538 per MD order. BP recheck @ 1741 205/88. aware. STAT Trandate 10mg IV and Hydral 50mg PO ordered and given @ 1753. Pt resting in bed,
family at bedside.
[2024-10-21 21:47] LABS: Glucose - Point of Care 249 mg/dl (70-99)
[2024-10-21] MEDS: APRESOLINE 75 MG PO (22:17)
[2024-10-21] MEDS: LANTUS 0.8 UNITS SC (22:34)
[2024-10-22 03:05] VITALS: BP 107/59; BP 123/63; BP 95/47; PULSE 66; PULSE 67
[2024-10-22 03:05] LABS: Glucose - Point of Care 300 mg/dl (70-99)
[2024-10-22 06:00] VITALS: BMI 20.6
[2024-10-22 07:05] VITALS: BP 127/68
[2024-10-22 07:18] LABS: Glucose - Point of Care 202 mg/dl (70-99)
--- NOTE | 2024-10-22 08:04 | PN.DE.MGMTRT ---
Insulin Management
- -
10/22/2024: Diabetes management Consult:
73 year old male with PMH: HTN, HLD, CKD stage V, Pseudohyponatremia 2/2 hyperglycemia, Anemia of Chronic Disease and T2DM. Pt presented to the ER for elevated blood sugar, his inial blood sugar was 835 on arrival. Patient reports he ran out of
insulin 10 days ago as his co-pay was $70 instead of $35. States he has not been checking his sugars at home but recent;ly got a CGM- Jayshree 3 and is asking for assistance to get it started, tho device is currently not here with him.
Reports taking Basaglar 80 units daily at HS. He does not remember the rest of his diabetes medications. A1C 12%, Cr 1.0, eGFR >60.
Pt awake, alert, sitting up in chair, offers no complaints, able to discuss diabetes mgt
Glucose remains elevated, 10/21 premeal 165 to 239 requiring additional corrective with meals, HS glucose was 299, up to 300@ 3AM. Fasting 169 (V)
Will increase NovoLog to 10 units AC. Cont Basaglar 80 units at HS and moderate corrective insulin with meals.
Pt states he is comfortable with self administration of insulin. Reviewed technique and step by step instructions of proper insulin administration rotating sites an .
Diabetes History
- -
Type of Diabetes: 2 requiring insulin
Pre-Admission Diabetes Regimen
10/21/24
07:13
Creatinine 5.1 H*
Lab Results
Hemoglobin A1c 12.0 % (4.0-5.6) H 10/20/24 06:40
Insulin Pump Settings
IP Diabetes Regimen
10/21/24 10/21/24 10/21/24
07:13 08:15 12:26
Glucose 81
POC Glucose 165 H 239 H
10/21/24 10/21/24 10/22/24
16:34 21:45 03:03
Glucose
POC Glucose 194 H 249 H 300 H
10/22/24
07:17
Glucose
POC Glucose 202 H
Patient Education
[2024-10-22 08:27] LABS: % Basophils 0.5 % (0-2); % Eosinophils 4.7 % (0-6); % Immature Granulocytes 0.4 % (0-0.5); % Lymphocytes 15.2 % (20.5-51.1); % Monocytes 11.1 % (1.7-9.3); % Neutrophils 68.1 % (42.2-75.2); Absolute Eosinophils 0.3 10^3/uL (0-0.7); Absolute Lymphocytes 0.9 10^3/uL (1.2-3.4); Absolute Monocytes 0.6 10^3/uL (0.1-0.6); Absolute Neutrophils 3.8 10^3/uL (1.4-6.5); Hematocrit 22.5 % (39.0-52.0); Hemoglobin 7.9 g/dL (13.0-18.0); Mean Corp Hgb Conc. 35.1 g/dL (33.0-37.0); Mean Corpuscular Hgb 30.7 pg (27.0-31.0); Mean Corpuscular Volume 87.5 fL (80.0-94.0); Nucleated Red Blood Cells % 0 % (-); Platelet Count 173 10^3/uL (130-400); Red Blood Cell Count 2.57 10^6/uL (4.70-6.10); Red Cell Dist. Width 12.3 % (11.5-14.5); White Blood Cell Count 5.6 10^3/uL (4.8-10.8)
[2024-10-22] MEDS: NOVOLOG FLEXPEN-HIGH RESISTANCE 4 UNITS SC (08:37)
[2024-10-22] MEDS: SODIUM BICARBONATE 650 MG PO ×2 (08:37→21:56)
[2024-10-22] MEDS: NOVOLOG FLEXPEN 7 UNITS SC (08:37)
[2024-10-22] MEDS: APRESOLINE 75 MG PO ×2 (08:37→17:47)
[2024-10-22] MEDS: HEPARIN 5000 UNITS SC ×3 (08:38→23:44)
[2024-10-22 08:59] LABS: Blood Urea Nitrogen 55 mg/dl (9-20); Calcium 8.7 mg/dl (8.4-10.2); Carbon Dioxide 20 mmol/L (22-30); Chloride 108 mmol/L (98-107); Estimated Creatinine Clearance 10 ml/min; Glucose 169 mg/dl (70-99); Potassium 4.2 mmol/L (3.5-5.1); Sodium 139 mmol/L (135-145); eGFR 9.97
--- NOTE | 2024-10-22 11:02 | CM ---
Pt seen bedside. Initial assessment completed. Pt lives w/ daughter, son-in-law and grand kids in a [place]-no steps to enter.
Pt is independent, denies DME use for ambulating or daily functioning
Denies SNF/VN/PT in the past
Address, point of contact and insurance verified
PCP: Dr. Gil Hernandez
Pharmacy: [facility]
Diabetes management consulted
Plan: Home; no needs
--- NOTE | 2024-10-22 11:18 | W.PN.NEPH.PH ---
Today's Communication / Plan
-
Follow BMP
Retacrit administered for anemia
Assessment/Plan
-
IMP:
Uncontrolled Diabetes Mellitus, secondary to noncompliance
Uncontrolled Hypertension
PRINCESS on CKD Stage V
Anion gap metabolic acidosis
Hypokalemia
Anemia of Chronic Disease
Pseudohyponatremia secondary to hyperglycemia
Hyperlipidemia
Plan:
A/w mild DKA
Princess with CKD 5-likely from uncontrolled diabetes and hypertension
No nephrology care prior- patient did not seek
Suspect he will likely need dialysis in the near future maybe even this admission
UA with mild microhematuria, albuminuria
Renal ultrasound without hydronephrosis
Creatinine up to 5.7
Will provide 1 dose of Retacrit today for anemia
add po bicarb for met acidosis
Continue home blood pressure medications, hydralazine added per primary
poorly controlled BPs with orthostatic hypotension-l likely from autonomic neuropathy
checked a renal duplex, ARR, metanephrines, catecholamines
The reviewed apart potential need of dialysis in the near future
I think he is not candidate for PD with uncontrolled diabetes
goal BPs 150s
Would likely need vascular evaluation for fistula placement
Okay to hold chlorthalidone
Monitor hemoglobin, iron stores, b12, folate seem to be adequate, likely give CAMERON prior d/c once bp controlled
Will need follow-up nephro but i am Confident that he will leave off dialysis
-
-
Date of Service: October 22, 2024
CC / HPI / ROS
-
Chief Complaint:
PRINCESS with CKD
History of Present Illness:
Creatinine up to 5.7
k normal 3.9
BP labile with +ve orthostatic
no fever
Hemoglobin lower at 7.9
Review of Systems:
no cp or sob
left leg still RLS symp
Labs
-
Labs:
WBC 5.6 10^3/uL (4.8-10.8) 10/22/24 07:46
RBC 2.57 10^6/uL (4.70-6.10) L 10/22/24 07:46
Hgb 7.9 g/dL (13.0-18.0) L 10/22/24 07:46
Hct 22.5 % (39.0-52.0) L 10/22/24 07:46
Plt Count 173 10^3/uL (130-400) 10/22/24 07:46
Sodium 139 mmol/L (135-145) 10/22/24 07:46
Potassium 4.2 mmol/L (3.5-5.1) 10/22/24 07:46
Chloride 108 mmol/L (98-107) H 10/22/24 07:46
Carbon Dioxide 20 mmol/L (22-30) L 10/22/24 07:46
BUN 55 mg/dl (9-20) H 10/22/24 07:46
Creatinine 5.7 mg/dL (0.7-1.3) H* 10/22/24 07:46
eGFR 9.97 10/22/24 07:46
Glucose 169 mg/dl (70-99) H 10/22/24 07:46
Calcium 8.7 mg/dl (8.4-10.2) 10/22/24 07:46
Albumin 4.5 g/dl (3.5-5.0) 10/19/24 14:03
Physical Exam
-
Vital Signs:
Vital Signs
Temp Pulse Resp BP Pulse Ox
98.1 F 62 6 127/68 98
10/22/24 07:05 10/22/24 08:37 10/22/24 07:05 10/22/24 08:37 10/22/24 07:05
Cardiovascular:: Regular rate and rhythm
Respiratory:: Bilateral: CTA
Lung Excursion:: Normal
Abdomen:: Nontender and Soft
Extremity Edema:: None: Bilateral:
Lam Catheter: No
Other Findings::
left foot DPS2+
[2024-10-22 11:41] VITALS: BP 171/79
[2024-10-22] MEDS: RETACRIT 10000 UNITS SC (12:13)
[2024-10-22] MEDS: NOVOLOG FLEXPEN-HIGH RESISTANCE SC (12:18)
[2024-10-22] MEDS: NOVOLOG FLEXPEN 10 UNITS SC ×2 (12:18→17:47)
[2024-10-22 12:22] LABS: Glucose - Point of Care 75 mg/dl (70-99)
[2024-10-22] MEDS: APRESOLINE 10 MG IV (13:21)
--- NOTE | 2024-10-22 15:22 | W.PN.HOSP.TC ---
Today's Communication/Plan
-
Start EPO per nephrology, trend CBC
Trend urine output closely and daily BMP
Follow-up urine metanephrines/catecholamines, aldosterone/renin, renal duplex US
Uptitrate insulin per sliding scale requirements
Assessment / Plan
Assessment / Plan
#T2DM with hyperglycemia
#S/p mild DKA
-A1c 12% on labs here; unlikely compliant with insulin regimen as an outpatient
-Suspect his severe chronic renal insufficiency is associated with diabetic nephropathy
-Was started on long-acting and short acting insulin, has been uptitrated per ISS requirements
-DM nurse today increased to Lantus 80 units nightly, NovoLog 10 units with meals, ISS
-Continue to monitor Accu-Cheks with blood glucose goal 100-200, avoid hypoglycemia
-Uptitrate standing insulin requirements per sliding scale use
#Resistant hypertension
-Differentials include noncompliance to meds, renal artery stenosis; less likely pheochromocytoma, carcinoid
-Poorly controlled blood pressure on multimodal regimen of clonidine, irbesartan, metoprolol, nifedipine, chlorthalidone
-Holding chlorthalidone due to COLLIN on CKD stage V
-Follow-up renin/aldosterone, metanephrines, catecholamine testing
-C/W clonidine 0.3 PM, hydralazine 75 TID, irbesartan 300 PM, metoprolol XL 200 PM, nifedipine 90 PM
-Continue with as needed IV labetalol and hydralazine
-Plan to uptitrate oral hydralazine dose if needed
-Goal BP <150/90 mmHg for now
#COLLIN on CKD stage V
-Significant advanced CKD secondary to diabetic and hypertensive renal disease
-Has a degree of chronic metabolic acidosis, was started on PO HCO3
-Creatinine baseline per recent labs near 5.2; presented with creatinine 6.0
-Possible that this is due to advancement of underlying CKD
-Holding chlorthalidone for now; remains on other antihypertensives
-Continue to hold chlorthalidone, monitor daily BMP
-Monitor urine output closely, avoid nephrotoxins
-Antihypertensive and antihyperglycemic regimens as above
-Suspect he will need dialysis in the near future
#Normocytic anemia of CKD
-Iron panel nutritional workup here without signs of insufficiency
-Hemoglobin was 9.4 in early September, down to 7.9
-No obvious sources of bleeding noted
-Was started on EPO therapy by nephrology today
-Trend daily CBC
#Dyslipidemia
-No known history of ASCVD
-Home medications include moderate intensity statin
DVT prophylaxis: Subcutaneous heparin
Diet: Carb controlled
CODE STATUS: Full
Anticipated Discharge: > 48 hours
Subjective/Interval History
-
Date of Service: October 22, 2024
Seen and examined at the bedside. No acute events reported overnight. AFVSS as of this morning
Renal function continues to be elevated above baseline, at 5.7 today. Hemoglobin down to 7.9
Denies acute complaints including chest pain, dyspnea, fevers or chills, nausea/vomiting/diarrhea, urinary issues, abnormal bleeding or bruising, paresthesias or weakness
Objective Data
-
Labs:
Laboratory Results
10/22/24
07:46
WBC 5.6
Hgb 7.9 L
Hct 22.5 L
Plt Count 173
Sodium 139
Potassium 4.2
Chloride 108 H
Carbon Dioxide 20 L
BUN 55 H
Creatinine 5.7 H*
Glucose 169 H
Calcium 8.7
Vital Signs:
Vital Signs
Temp Pulse Resp BP Pulse Ox
97.8 F 63 18 150/85 100
10/22/24 11:41 10/22/24 13:21 10/22/24 11:41 10/22/24 13:21 10/22/24 11:41
I&O
10/21/24 10/22/24 10/23/24
06:59 06:59 06:59
Intake Total 1220 / 1220 1919
Balance 1220 / 1220 1919
Review of Systems
-
History Source: Patient
All other systems: Reviewed and negative
Physical Exam
-
General: No Apparent Distress, Comfortable and Other (Thin male)
HEENT: Normocephalic, Atraumatic, Moist Mucous Membranes and Anicteric
Respiratory: Clear to Auscultation and Non Labored Respirations
Cardiac: Regular Rhythm and S1/S2; Negative Murmur, Rub or Gallop
GI: Soft, Nontender, Nondistended and Normal Bowel Sounds
Musculoskeletal: No Clubbing, No Cyanosis and No Edema
Skin: Warm and Dry; Negative Rash
Neuro: AO x 3 and Nonfocal/Grossly Intact
Psych: Calm
Data Reviewed
-
Labs: Labs Reviewed by me, Discussed with Physician and Discussed with Patient
[2024-10-22 15:25] VITALS: BP 145/66
[2024-10-22 17:10] LABS: Glucose - Point of Care 135 mg/dl (70-99)
[2024-10-22] MEDS: PROTONIX 40 MG PO (17:46)
[2024-10-22] MEDS: AVAPRO 300 MG PO (17:46)
[2024-10-22] MEDS: TOPROL XL 200 MG PO (17:46)
[2024-10-22] MEDS: CATAPRES 0.3 MG PO (17:46)
[2024-10-22] MEDS: LIPITOR 10 MG PO (17:46)
[2024-10-22] MEDS: PROCARDIA XL (EXTENDED RELEASE) 90 MG PO (17:46)
[2024-10-22] MEDS: NOVOLOG FLEXPEN-HIGH RESISTANCE 1 UNITS SC (17:48)
[2024-10-22 19:49] VITALS: BP 117/63
[2024-10-22 21:56] LABS: Glucose - Point of Care 141 mg/dl (70-99)
[2024-10-22] MEDS: LANTUS 0.8 UNITS SC (22:02)
[2024-10-22 23:00] VITALS: BP 109/61; BP 98/49; BP 99/52; PULSE 61; PULSE 62; PULSE 63
[2024-10-22] MEDS: APRESOLINE PO (23:42)
[2024-10-23] VITALS (8 sets, daily range): BP systolic 109–176; BP diastolic 61–90; PULSE 67–77; O2SAT 99; BMI 20.9
[2024-10-23 03:11] LABS: Glucose - Point of Care 157 mg/dl (70-99)
--- NOTE | 2024-10-23 07:41 | PN.DE.MGMTRT ---
Insulin Management
- -
10/23/2024: Diabetes management Consult Follow up
Patient admitted with elevated blood sugar, initial blood sugar was 835. PMH HTN, HLD, CKD stage V, Pseudohyponatremia 2/2 hyperglycemia, Anemia of Chronic Disease and T2DM. Patient reports he ran out of insulin 10 days ago as his co-pay was $70
instead of $35. States he has not been checking his sugars at home but recently got a CGM- Jayshree 3 but did not know how to use it.
Reports taking Basaglar 80 units at HS. He does not remember the rest of his diabetes medications. A1C 12%, Cr 5.7.0, eGFR 9.97.
Pt awake, alert, sitting up in chair, offers no complaints, able to discuss diabetes mgt
10/22 Novolog increased to 10 units AC, glucose range 135 to 141 after increase.
10/23 AM glucose 42. Decrease Lantus from 80 units to 70 units at HS due to the addition of meal time insulin. Will continue NovoLog 10 units AC, change high corrective to low.
Patient has Jayshree 3 @ bedside. Assisted patient to open and apply sensor. Assisted him with setting up the gely up until the point of username and password. He does have a glucose monitor at home as a backup.
Discussed with nurse.
Diabetes History
- -
Type of Diabetes: 2 requiring insulin
Pre-Admission Diabetes Regimen
10/22/24
07:46
Creatinine 5.7 H*
Lab Results
Hemoglobin A1c 12.0 % (4.0-5.6) H 10/20/24 06:40
Insulin Pump Settings
IP Diabetes Regimen
10/22/24 10/22/24 10/22/24
07:46 12:16 17:09
Glucose 169 H
POC Glucose 75 135 H
10/22/24 10/23/24
21:55 03:04
Glucose
POC Glucose 141 H 157 H
Meal type: Lunch
Meal type: Breakfast
Amount consumed: 100%
Amount consumed: 100%
Patient Education
[2024-10-23 07:57] LABS: Glucose - Point of Care 47 mg/dl (70-99)
[2024-10-23 08:11] LABS: Glucose - Point of Care 54 mg/dl (70-99)
[2024-10-23 08:20] LABS: Glucose - Point of Care 56 mg/dl (70-99)
[2024-10-23 08:29] LABS: Glucose - Point of Care 73 mg/dl (70-99)
[2024-10-23] MEDS: NOVOLOG FLEXPEN-HIGH RESISTANCE SC (09:13)
[2024-10-23] MEDS: SODIUM BICARBONATE 650 MG PO ×2 (09:47→21:46)
[2024-10-23] MEDS: HEPARIN 5000 UNITS SC ×3 (09:47→23:08)
[2024-10-23] MEDS: APRESOLINE 75 MG PO (09:48)
[2024-10-23 09:50] LABS: Blood Urea Nitrogen 56 mg/dl (9-20); Calcium 9.2 mg/dl (8.4-10.2); Carbon Dioxide 19 mmol/L (22-30); Chloride 110 mmol/L (98-107); Estimated Creatinine Clearance 9 ml/min; Glucose 42 mg/dl (70-99); Potassium 3.7 mmol/L (3.5-5.1); Sodium 143 mmol/L (135-145); eGFR 9.01
[2024-10-23] MEDS: NOVOLOG FLEXPEN-LOW RESISTANCE SC (09:51)
[2024-10-23] MEDS: NOVOLOG FLEXPEN SC (09:54)
[2024-10-23] MEDS: NOVOLOG FLEXPEN 6 UNITS SC (09:55)
[2024-10-23 10:36] LABS: Glucose - Point of Care 248 mg/dl (70-99)
[2024-10-23 12:36] LABS: Glucose - Point of Care 275 mg/dl (70-99)
--- NOTE | 2024-10-23 12:40 | W.PN.HOSP.TC ---
Today's Communication/Plan
-
Continue to titrate insulin, avoid hypoglycemia
Trend BMP and UOP very closely
Hold chlorthalidone
Follow-up secondary hypertension workup
SBP goal <150-160
Assessment / Plan
Assessment / Plan
#T2DM with hyperglycemia
#S/p mild DKA
-A1c 12% on labs here; unlikely compliant with insulin regimen as an outpatient
-Suspect his severe chronic renal insufficiency is associated with diabetic nephropathy
-Was started on long-acting and short acting insulin, has been uptitrated per ISS requirements
-Was initially increased to 80 units Lantus nightly however reduced back to 70 units after AM hypoglycemia
-Diabetic team following
Plan
-Continue with 70 units Lantus nightly, 10 units aspart with meals
-Continue to monitor Accu-Cheks with blood glucose goal 100-200, avoid hypoglycemia
-Uptitrate standing insulin requirements per sliding scale use
#Resistant hypertension
-Differentials include noncompliance to meds, renal artery stenosis; less likely pheochromocytoma, carcinoid
-Poorly controlled blood pressure on multimodal regimen of clonidine, irbesartan, metoprolol, nifedipine, chlorthalidone
-Holding chlorthalidone due to COLLIN on CKD stage V
-Secondary hypertension workup ordered; renal duplex negative for MAYANK
Plan
-Follow-up renin/aldosterone, metanephrines, catecholamine testing
-C/W clonidine 0.3 PM, hydralazine 75 TID, irbesartan 300 PM, metoprolol XL 200 PM, nifedipine 90 PM
-Continue with as needed IV labetalol and hydralazine
-Plan to uptitrate oral hydralazine dose if needed
-Goal BP <150/90 mmHg for now
#COLLIN on CKD stage V
-Significant advanced CKD secondary to diabetic and hypertensive renal disease
-Has a degree of chronic metabolic acidosis, was started on PO HCO3; holding chlorthalidone
-Creatinine baseline per recent labs near 6.2; presented with creatinine 6.0
-Per nephrology would not be good PD candidate due to poor glycemic control
-Possible that this is due to advancement of underlying CKD rather than true COLLIN
Plan
-Continue to hold chlorthalidone, monitor daily BMP
-Monitor urine output closely, avoid nephrotoxins
-Antihypertensive and antihyperglycemic regimens as above
#Normocytic anemia of CKD
-Iron panel nutritional workup here without signs of insufficiency
-Hemoglobin was 9.4 in early September, down to 7.9
-No obvious sources of bleeding noted
-Was started on EPO therapy by nephrology
-Trend daily CBC
#Dyslipidemia
-No known history of ASCVD
-Home medications include moderate intensity statin
DVT prophylaxis: Subcutaneous heparin
Diet: Carb controlled
CODE STATUS: Full
Anticipated Discharge: 24 - 48 hours
Subjective/Interval History
-
Date of Service: October 23, 2024
Seen and examined at the bedside. No acute events reported. AFVSS this morning
He did come hypoglycemic prior to breakfast this morning, improved with orange juice. Long-acting insulin reduced from 80 to 70 units
Denies acute complaints today. States he feels tired but otherwise well
Objective Data
-
Labs:
Laboratory Results
10/23/24
08:06
Sodium 143
Potassium 3.7
Chloride 110 H
Carbon Dioxide 19 L
BUN 56 H
Creatinine 6.2 H*
Glucose 42 L*
Calcium 9.2
Vital Signs:
Vital Signs
Temp Pulse Resp BP Pulse Ox
98.3 F 67 20 146/70 99
10/23/24 11:44 10/23/24 11:44 10/23/24 11:44 10/23/24 11:44 10/23/24 11:44
I&O
10/22/24 10/23/24 10/24/24
06:59 06:59 06:59
Intake Total 1919 600 / 600
Balance 1919 600 / 600
Review of Systems
-
History Source: Patient
All other systems: Reviewed and negative
Physical Exam
-
General: Well Developed, No Apparent Distress, Comfortable and Appears Chronically Ill
HEENT: Normocephalic, Atraumatic, Moist Mucous Membranes and Anicteric
Respiratory: Clear to Auscultation and Non Labored Respirations
Cardiac: Regular Rhythm and S1/S2; Negative Murmur, Rub or Gallop
GI: Soft, Nontender, Nondistended and Normal Bowel Sounds
Musculoskeletal: No Clubbing, No Cyanosis and No Edema
Skin: Warm, Dry and Normal Turgor; Negative Rash
Neuro: AO x 3 and Nonfocal/Grossly Intact
Psych: Calm
Data Reviewed
-
Labs: Labs Reviewed by me, Discussed with Nurse and Discussed with Patient
[2024-10-23] MEDS: NOVOLOG FLEXPEN 10 UNITS SC ×2 (13:46→18:32)
[2024-10-23] MEDS: NOVOLOG FLEXPEN-LOW RESISTANCE 3 UNITS SC (13:46)
[2024-10-23] MEDS: APRESOLINE 50 MG PO ×2 (15:55→23:08)
--- NOTE | 2024-10-23 16:00 | W.PN.NEPH.PH ---
Today's Communication / Plan
-
IR consulted for tunneled HD catheter tomorrow
Oral hydralazine titrated back for low blood pressure
Obtain coags in a.m. before tunneled catheter placed
Dialysis will likely be commenced on 1211
Assessment/Plan
-
IMP:
Uncontrolled Diabetes Mellitus, secondary to noncompliance
Uncontrolled Hypertension
PRINCESS on CKD Stage V
Anion gap metabolic acidosis
Hypokalemia
Anemia of Chronic Disease
Pseudohyponatremia secondary to hyperglycemia
Hyperlipidemia
Plan:
A/w mild DKA
Princess with CKD 5-likely from uncontrolled diabetes and hypertension
No nephrology care prior- patient did not seek
Suspect he will likely need dialysis in the near future maybe even this admission
UA with mild microhematuria, albuminuria
Renal ultrasound without hydronephrosis
Creatinine up to 6.2
Will provide 1 dose of Retacrit today for anemia
maintain po bicarb for met acidosis
Continue home blood pressure medications, hydralazine titrated back to 50 mg 3 times daily as some blood pressures have been low
poorly controlled BPs with orthostatic hypotension-l likely from autonomic neuropathy
checked a renal duplex (negative), ARR, metanephrines, catecholamines
Plan will be to proceed with dialysis
IR consulted for tunneled catheter placement tomorrow
Dialysis to be initiated on
I think he is not candidate for PD with uncontrolled diabetes
goal BPs 150s
will eventually need vascular evaluation for fistula placement
Okay to hold chlorthalidone
-
-
Date of Service: October 23, 2024
CC / HPI / ROS
-
Chief Complaint:
PRINCESS with CKD
History of Present Illness:
Creatinine up to 6.2
k normal 3.7
BP labile with +ve orthostatic
no fever
Hemoglobin lower at 7.9
Review of Systems:
no cp or sob
left leg still RLS symp
Labs
-
Labs:
WBC 5.6 10^3/uL (4.8-10.8) 10/22/24 07:46
RBC 2.57 10^6/uL (4.70-6.10) L 10/22/24 07:46
Hgb 7.9 g/dL (13.0-18.0) L 10/22/24 07:46
Hct 22.5 % (39.0-52.0) L 10/22/24 07:46
Plt Count 173 10^3/uL (130-400) 10/22/24 07:46
Sodium 143 mmol/L (135-145) 10/23/24 08:06
Potassium 3.7 mmol/L (3.5-5.1) 10/23/24 08:06
Chloride 110 mmol/L (98-107) H 10/23/24 08:06
Carbon Dioxide 19 mmol/L (22-30) L 10/23/24 08:06
BUN 56 mg/dl (9-20) H 10/23/24 08:06
Creatinine 6.2 mg/dL (0.7-1.3) H* 10/23/24 08:06
eGFR 9.01 10/23/24 08:06
Glucose 42 mg/dl (70-99) L* 10/23/24 08:06
Calcium 9.2 mg/dl (8.4-10.2) 10/23/24 08:06
Albumin 4.5 g/dl (3.5-5.0) 10/19/24 14:03
Physical Exam
-
Vital Signs:
Vital Signs
Temp Pulse Resp BP Pulse Ox
98.3 F 67 20 146/70 99
10/23/24 11:44 10/23/24 11:44 10/23/24 11:44 10/23/24 11:44 10/23/24 11:44
Cardiovascular:: Regular rate and rhythm
Respiratory:: Bilateral: CTA
Lung Excursion:: Normal
Abdomen:: Nontender and Soft
Extremity Edema:: None: Bilateral:
Lam Catheter: No
Other Findings::
left foot DPS2+
[2024-10-23 17:13] LABS: Glucose - Point of Care 219 mg/dl (70-99)
[2024-10-23] MEDS: TOPROL XL 200 MG PO (18:09)
[2024-10-23] MEDS: CATAPRES 0.3 MG PO (18:10)
[2024-10-23] MEDS: AVAPRO 300 MG PO (18:10)
[2024-10-23] MEDS: PROTONIX 40 MG PO (18:10)
[2024-10-23] MEDS: PROCARDIA XL (EXTENDED RELEASE) 90 MG PO (18:11)
[2024-10-23] MEDS: LIPITOR 10 MG PO (18:11)
[2024-10-23] MEDS: NOVOLOG FLEXPEN-LOW RESISTANCE 2 UNITS SC (18:32)
[2024-10-23 21:39] LABS: Glucose - Point of Care 182 mg/dl (70-99)
[2024-10-23] MEDS: LANTUS 0.7 UNITS SC (21:47)
[2024-10-24] VITALS (10 sets, daily range): BP systolic 55–210; BP diastolic 54–94; BMI 21.2
[2024-10-24 03:11] LABS: Glucose - Point of Care 112 mg/dl (70-99)
--- NOTE | 2024-10-24 07:18 | PN.DE.MGMTRT ---
Insulin Management
- -
10/24/2024: Diabetes management Consult Follow up
Patient admitted with elevated blood sugar, initial blood sugar was 835. PMH HTN, HLD, CKD stage V, Pseudohyponatremia 2/2 hyperglycemia, Anemia of Chronic Disease and T2DM. Patient reports he ran out of insulin 10 days ago as his co-pay was $70
instead of $35. States he has not been checking his sugars at home but recently got a CGM- Jayshree 3 but did not know how to use it.
Reports taking Basaglar 80 units at HS. He does not remember the rest of his diabetes medications. A1C 12%, Cr 5.7.0, eGFR 9.97.
10/22 Novolog increased to 10 units AC, glucose range 135 to 141 after increase.
10/23 AM glucose 42. Decreased Lantus from 80 units to 70 units at HS due to the addition of meal time insulin. Will continue NovoLog 10 units AC, change high corrective to low.
10/24 Fasting glucose 112, pre meal yesterday 219 to 275. Patient for tunneled HD cath placement today, will make no change to regimen.
Patient has Jayshree 3 @ bedside. Assisted patient to open and apply sensor. Assisted him with setting up the gely up until the point of username and password. He does have a glucose monitor at home as a backup.
Diabetes History
- -
Type of Diabetes: 2 requiring insulin
Pre-Admission Diabetes Regimen
10/23/24
08:06
Creatinine 6.2 H*
Lab Results
Hemoglobin A1c 12.0 % (4.0-5.6) H 10/20/24 06:40
Insulin Pump Settings
IP Diabetes Regimen
10/23/24 10/23/24 10/23/24
07:53 08:06 08:09
Glucose 42 L*
POC Glucose 47 L* 54 L*
10/23/24 10/23/24 10/23/24
08:18 08:27 10:34
Glucose
POC Glucose 56 L 73 248 H
10/23/24 10/23/24 10/23/24
12:35 17:12 21:38
Glucose
POC Glucose 275 H 219 H 182 H
10/24/24
03:09
Glucose
POC Glucose 112 H
Meal type: Lunch
Meal type: Breakfast
Amount consumed: 100%
Amount consumed: 100%
Patient Education
[2024-10-24 07:21] LABS: Glucose - Point of Care 75 mg/dl (70-99)
[2024-10-24] MEDS: HEPARIN SC (07:41)
--- NOTE | 2024-10-24 08:16 | PN.DIAED10 ---
Update Note
- Diabetes Education Update Note
Notes:
10/24. Fasting lgucose 112, patient nurse, Mari, reports fingerstick glucose 75. Will further reduce HS lantus to 60 units.
[2024-10-24] MEDS: NOVOLOG FLEXPEN SC ×3 (08:32→18:00)
[2024-10-24] MEDS: NOVOLOG FLEXPEN-LOW RESISTANCE SC ×2 (08:33→16:55)
[2024-10-24] MEDS: APRESOLINE 50 MG PO ×3 (08:48→21:43)
[2024-10-24] MEDS: SODIUM BICARBONATE 650 MG PO ×2 (08:49→20:16)
[2024-10-24 09:05] LABS: INR 0.92; PT 12.9 Sec (11.4-14.6)
[2024-10-24 09:14] LABS: % Basophils 0.8 % (0-2); % Eosinophils 4.6 % (0-6); % Lymphocytes 20.9 % (20.5-51.1); % Monocytes 12.8 % (1.7-9.3); % Neutrophils 59.9 % (42.2-75.2); Absolute Basophils 0.1 10^3/uL (0-0.2); Absolute Eosinophils 0.4 10^3/uL (0-0.7); Absolute Immature Granulocytes 0.1 10^3/uL (0-0.05); Absolute Lymphocytes 1.8 10^3/uL (1.2-3.4); Absolute Monocytes 1.1 10^3/uL (0.1-0.6); Absolute Neutrophils 5.2 10^3/uL (1.4-6.5); Hematocrit 26.3 % (39.0-52.0); Mean Corp Hgb Conc. 34.2 g/dL (33.0-37.0); Mean Corpuscular Volume 90.7 fL (80.0-94.0); Nucleated Red Blood Cells % 0 % (-); Platelet Count 231 10^3/uL (130-400); Red Cell Dist. Width 12.3 % (11.5-14.5); White Blood Cell Count 8.7 10^3/uL (4.8-10.8)
[2024-10-24 09:27] LABS: Blood Urea Nitrogen 56 mg/dl (9-20); Carbon Dioxide 21 mmol/L (22-30); Chloride 108 mmol/L (98-107); Estimated Creatinine Clearance 10 ml/min; Glucose 54 mg/dl (70-99); Sodium 142 mmol/L (135-145); eGFR 9.37
[2024-10-24 09:39] LABS: Glucose - Point of Care 180 mg/dl (70-99)
[2024-10-24 10:45] LABS: Aldosterone, Serum 9.6 ng/dL; Aldosterone/Renin Activ Ratio 5.3 ratio (<=25.0); Renin Activity Results 1.8 ng/mL/hr
--- NOTE | 2024-10-24 11:39 | W.PN.HOSP.TC ---
Today's Communication/Plan
-
IR for tunneled catheter placement
Hemodialysis to start tomorrow
Continue to titrate insulin to avoid hypoglycemia
Assessment / Plan
Assessment / Plan
#T2DM with hyperglycemia
#S/p mild DKA
-A1c 12% on labs here; unlikely compliant with insulin regimen as an outpatient
-Suspect his severe chronic renal insufficiency is associated with diabetic nephropathy
-Was started on long-acting and short acting insulin, has been uptitrated per ISS requirements
-Was initially increased to 80 units Lantus nightly however reduced back to 60 units after AM hypoglycemia
-Suspect that insulin requirements may continue to decrease due to new ESRD
-Diabetic team following
Plan
-Continue with 60 units Lantus nightly, 10 units aspart with meals
-Continue to monitor Accu-Cheks with blood glucose goal 100-200
-Hypoglycemic precautions
#Resistant hypertension
-Differentials include noncompliance to meds, renal artery stenosis; less likely pheochromocytoma, carcinoid
-Poorly controlled blood pressure on multimodal regimen of clonidine, irbesartan, metoprolol, nifedipine, chlorthalidone
-Holding chlorthalidone due to COLLIN on CKD stage V
-Secondary hypertension workup ordered; renal duplex negative for MAYANK
-Blood pressure has been more well-controlled over recent days
Plan
-Follow-up renin/aldosterone, metanephrines, catecholamine testing
-C/W clonidine 0.3 PM, hydralazine 50 TID, irbesartan 300 PM, metoprolol XL 200 PM, nifedipine 90 PM
-Continue with as needed IV labetalol and hydralazine
-Goal BP <150/90 mmHg for now
#New onset ESRD
#COLLIN on CKD stage V
-Significant advanced CKD secondary to diabetic and hypertensive renal disease
-Has a degree of chronic metabolic acidosis, was started on PO HCO3; holding chlorthalidone
-Creatinine baseline per recent labs near 6.2; presented with creatinine 6.0
-Per nephrology would not be good PD candidate due to poor glycemic control
-Possible that this is due to advancement of underlying CKD rather than true COLLIN
Plan
-Continue to hold chlorthalidone, monitor daily BMP
-Monitor urine output closely, avoid nephrotoxins
-Tunnel cath placement today, dialysis to start tomorrow
-Continue bicarbonate supplement
#Normocytic anemia of CKD
-Iron panel nutritional workup here without signs of insufficiency
-Hemoglobin was 9.4 in early September, down to 7.9
-No obvious sources of bleeding noted
-Was started on EPO, hemoglobin up to 9
-Trend daily CBC
#Dyslipidemia
-No known history of ASCVD
-Home medications include moderate intensity statin
DVT prophylaxis: Subcutaneous heparin
Diet: Carb controlled
CODE STATUS: Full
Anticipated Discharge: > 48 hours
Subjective/Interval History
-
Date of Service: October 24, 2024
Seen and examined at the bedside. No acute events reported overnight. AFVSS this morning
Labs fairly stable. Plan for IR tunneled cath placement today. Dialysis to start tomorrow. Was hypoglycemic again this morning, Lantus decreased further
Denies any acute complaints today
Objective Data
-
Labs:
Laboratory Results
10/24/24
08:34
WBC 8.7
Hgb 9.0 L
Hct 26.3 L
Plt Count 231 D
PT 12.9
INR 0.92
Sodium 142
Potassium 4.0
Chloride 108 H
Carbon Dioxide 21 L
BUN 56 H
Creatinine 6.0 H*
Glucose 54 L*
Calcium 9.0
Vital Signs:
Vital Signs
Temp Pulse Resp BP Pulse Ox
97.3 F 66 16 135/67 97
10/24/24 11:28 10/24/24 11:28 10/24/24 11:28 10/24/24 11:28 10/24/24 08:00
I&O
10/23/24 10/24/24 10/25/24
06:59 06:59 06:59
Intake Total 600 / 600 420 / 420
Balance 600 / 600 420 / 420
Review of Systems
-
History Source: Patient
All other systems: Reviewed and negative
Physical Exam
-
General: Well Developed, No Apparent Distress, Comfortable, Appears Chronically Ill and Other (Thin and frail appearing)
HEENT: Normocephalic, Atraumatic, Moist Mucous Membranes and Anicteric
Respiratory: Clear to Auscultation and Non Labored Respirations
Cardiac: Regular Rhythm and S1/S2; Negative Murmur, Rub or Gallop
GI: Soft, Nontender, Nondistended and Normal Bowel Sounds
Musculoskeletal: No Clubbing, No Cyanosis and No Edema
Skin: Warm, Dry and Normal Turgor; Negative Rash
Neuro: AO x 3 and Nonfocal/Grossly Intact
Psych: Calm
Data Reviewed
-
Labs: Labs Reviewed by me, Discussed with Physician (Diabetic team) and Discussed with Patient
[2024-10-24 11:41] LABS: Glucose - Point of Care 260 mg/dl (70-99)
[2024-10-24] MEDS: NOVOLOG FLEXPEN-LOW RESISTANCE 3 UNITS SC (11:48)
--- NOTE | 2024-10-24 12:08 | CM ---
Chart reviewed. Pt to get tunneled cath today
Pt will begin hemodialysis tomorrow
Diabetes management following
CM will follow for potential OP HD needs
Plan: CM will cont to follow for d/c planning pending hospital course
--- NOTE | 2024-10-24 13:08 | W.PN.NEPH.PH ---
Today's Communication / Plan
-
CVC today
Assessment/Plan
-
IMP:
Uncontrolled Diabetes Mellitus, secondary to noncompliance
Uncontrolled Hypertension
COLLIN on CKD Stage V
Anion gap metabolic acidosis
Hypokalemia
Anemia of Chronic Disease
Pseudohyponatremia secondary to hyperglycemia
Hyperlipidemia
Plan:
s/p retacrit 10/14-
HD CVC today
start HD tomorrow
OP HD planning
-
-
Date of Service: October 24, 2024
CC / HPI / ROS
-
Chief Complaint:
COLLIN with CKD
History of Present Illness:
Creatinine holding 6
k normal
BP labile
no fever
Hemoglobin 9
Review of Systems:
no cp or sob
left leg still RLS symp
Labs
-
Labs:
WBC 8.7 10^3/uL (4.8-10.8) 10/24/24 08:34
RBC 2.90 10^6/uL (4.70-6.10) L 10/24/24 08:34
Hgb 9.0 g/dL (13.0-18.0) L 10/24/24 08:34
Hct 26.3 % (39.0-52.0) L 10/24/24 08:34
Plt Count 231 10^3/uL (130-400) D 10/24/24 08:34
Sodium 142 mmol/L (135-145) 10/24/24 08:34
Potassium 4.0 mmol/L (3.5-5.1) 10/24/24 08:34
Chloride 108 mmol/L (98-107) H 10/24/24 08:34
Carbon Dioxide 21 mmol/L (22-30) L 10/24/24 08:34
BUN 56 mg/dl (9-20) H 10/24/24 08:34
Creatinine 6.0 mg/dL (0.7-1.3) H* 10/24/24 08:34
eGFR 9.37 10/24/24 08:34
Glucose 54 mg/dl (70-99) L* 10/24/24 08:34
Calcium 9.0 mg/dl (8.4-10.2) 10/24/24 08:34
Albumin 4.5 g/dl (3.5-5.0) 10/19/24 14:03
Physical Exam
-
Vital Signs:
Vital Signs
Temp Pulse Resp BP Pulse Ox
97.3 F 66 16 135/67 97
10/24/24 11:28 10/24/24 11:28 10/24/24 11:28 10/24/24 11:28 10/24/24 08:00
Cardiovascular:: Regular rate and rhythm
Respiratory:: Bilateral: CTA
Lung Excursion:: Normal
Abdomen:: Nontender and Soft
Bowel Sounds:: Normal
Extremity Edema:: None: Bilateral:
[2024-10-24] MEDS: VANCOCIN 200 IV (14:25)
[2024-10-24 14:32] LABS: Glucose - Point of Care 128 mg/dl (70-99)
[2024-10-24 16:40] LABS: Glucose - Point of Care 93 mg/dl (70-99)
[2024-10-24] MEDS: HEPARIN 5000 UNITS SC ×2 (16:40→23:34)
--- NOTE | 2024-10-24 16:45 | PTCARENOTE ---
Pt returned from tunneled HD cath placement. Drowsy but oriented x3 and arousable to verbal stimuli. Dressing to [facility]. Bp elevated given po meds as ordered. MD aware, pt due for additional meds at 6pm, nephro okay with continuing current regimen.
Pt reoriented to room, family at bedside, plan of care continues.
[2024-10-24] MEDS: CATAPRES 0.3 MG PO (17:58)
[2024-10-24] MEDS: LIPITOR 10 MG PO (17:58)
[2024-10-24] MEDS: AVAPRO 300 MG PO (17:58)
[2024-10-24] MEDS: PROTONIX 40 MG PO (17:58)
[2024-10-24] MEDS: TOPROL XL 200 MG PO (17:58)
[2024-10-24] MEDS: PROCARDIA XL (EXTENDED RELEASE) 90 MG PO (17:59)
[2024-10-24] MEDS: APRESOLINE 10 MG IV (20:14)
[2024-10-24 21:21] LABS: Glucose - Point of Care 220 mg/dl (70-99)
[2024-10-24] MEDS: LANTUS 0.6 UNITS SC (21:43)
[2024-10-25] VITALS (9 sets, daily range): BP systolic 104–186; BP diastolic 52–83; PULSE 70; O2SAT 98; BMI 21.2
--- NOTE | 2024-10-25 05:00 | DOWNTIME ---
There was a [employer] Office Coordinator Downtime on 10/25/2024 from 0200 to 10/25/2024 at 0325 . Downtime documentation of patient's care, including medication administrations, has been reconciled in the electronic record per guidelines. Refer to the
patient's paper chart under the miscellaneous tab to see printed paper medication records and downtime forms.
[2024-10-25 07:57] LABS: Glucose - Point of Care 68 mg/dl (70-99)
--- NOTE | 2024-10-25 08:12 | PN.DE.MGMTRT ---
Insulin Management
- -
10/25/2024: Diabetes management Consult Follow up
Patient admitted with elevated blood sugar, initial blood sugar was 835. PMH HTN, HLD, CKD stage V, Pseudohyponatremia 2/2 hyperglycemia, Anemia of Chronic Disease and T2DM. Patient reports he ran out of insulin 10 days ago as his co-pay was $70
instead of $35. States he has not been checking his sugars at home but recently got a CGM- Jayshree 3 but did not know how to use it.
Reports taking Basaglar 80 units at HS. He does not remember the rest of his diabetes medications. A1C 12%, Cr 5.7.0, eGFR 9.97.
10/24 Fasting glucose 112, pre meal yesterday 219 to 275. Patient for tunneled HD cath placement today, will make no change to regimen.
10/25 Patient awake alert and oriented, able to discuss changes to diabetes regimen.
Lantus dose decreased to 60 units last HS, fasting glucose 68. Will further decrease HS lantus to 50 units. Will decrease AC novolog to 7 units. Patient for HD today.
Patient has Jayshree 3 @ bedside. Assisted patient to open and apply sensor. Assisted him with setting up the gely up until the point of username and password. He does have a glucose monitor at home as a backup.
Discussed with nurse.
Diabetes History
- -
Type of Diabetes: 2 requiring insulin
Pre-Admission Diabetes Regimen
10/24/24
08:34
Creatinine 6.0 H*
Lab Results
Hemoglobin A1c 12.0 % (4.0-5.6) H 10/20/24 06:40
Insulin Pump Settings
IP Diabetes Regimen
10/24/24 10/24/24 10/24/24
08:34 09:37 11:40
Glucose 54 L*
POC Glucose 180 H 260 H
10/24/24 10/24/24 10/24/24
14:30 16:36 21:20
Glucose
POC Glucose 128 H 93 220 H
10/25/24
07:55
Glucose
POC Glucose 68 L
Meal type: Dinner
Meal type: Lunch
Meal type: Breakfast
Amount consumed: 75%
Amount consumed: 0
Amount consumed: 100%
Patient Education
[2024-10-25 08:32] LABS: Glucose - Point of Care 96 mg/dl (70-99)
[2024-10-25] MEDS: APRESOLINE 50 MG PO ×3 (09:47→21:52)
[2024-10-25] MEDS: SODIUM BICARBONATE 650 MG PO ×2 (09:47→20:10)
[2024-10-25] MEDS: NOVOLOG FLEXPEN-LOW RESISTANCE SC ×2 (09:48→16:50)
[2024-10-25] MEDS: HEPARIN 5000 UNITS SC ×3 (09:48→23:10)
[2024-10-25 10:31] LABS: Glucose - Point of Care 88 mg/dl (70-99)
[2024-10-25] MEDS: NOVOLOG FLEXPEN 7 UNITS SC ×2 (10:44→17:34)
--- NOTE | 2024-10-25 10:52 | CHAP ---
[facility] request relayed. Fr. Thomas anticipates arriving this afternoon. (another spray painter tried yesterday but Mr. Soares was out of his room)
[2024-10-25 12:34] LABS: Glucose - Point of Care 171 mg/dl (70-99)
--- NOTE | 2024-10-25 12:44 | CM ---
Spoke w/ hospitalist. Pt to start HD today
Nephrology following. Will need OP HD set up at d/c
Diabetes management following for insulin management
PT eval pending, await recs. Pt did not have any skilled needs on 10/23 but would like a re-evaluation
Plan: Home w/ OP HD
CM to send referrals to HD locations prior to d/c
--- NOTE | 2024-10-25 12:47 | W.PN.HOSP.TC ---
Today's Communication/Plan
-
Start dialysis
PT reevaluation
HD chair
Assessment / Plan
Assessment / Plan
#T2DM with hyperglycemia
#S/p mild DKA
-A1c 12% on labs here; unlikely compliant with insulin regimen as an outpatient
-Suspect his severe chronic renal insufficiency is associated with diabetic nephropathy
-Was started on long-acting and short acting insulin, has been uptitrated per ISS requirements
-Was initially increased to 80 units Lantus nightly however reduced back to 60 units after AM hypoglycemia
-Suspect that insulin requirements may continue to decrease due to new ESRD
-Diabetic team following, titrating insulin per Accu-Chek readings
Plan
-Continue with 50 units Lantus nightly, 7 units aspart with meals
-Continue to monitor Accu-Cheks with blood glucose goal 100-200
-Hypoglycemic precautions
#Resistant hypertension
-Differentials include noncompliance to meds, renal artery stenosis; less likely pheochromocytoma, carcinoid
-Poorly controlled blood pressure on multimodal regimen of clonidine, irbesartan, metoprolol, nifedipine, chlorthalidone
-Holding chlorthalidone due to COLLIN on CKD stage V
-Secondary hypertension workup ordered; renal duplex negative for MAYANK
-Blood pressure has been more well-controlled over recent days
Plan
-Follow-up renin/aldosterone, metanephrines, catecholamine testing
-C/W clonidine 0.3 PM, hydralazine 50 TID, irbesartan 300 PM, metoprolol XL 200 PM, nifedipine 90 PM
-Continue with as needed IV labetalol and hydralazine
-Goal BP <150/90 mmHg for now
#New onset ESRD
#COLLIN on CKD stage V
-Significant advanced CKD secondary to diabetic and hypertensive renal disease
-Has a degree of chronic metabolic acidosis, was started on PO HCO3; holding chlorthalidone
-Creatinine baseline per recent labs near 6.2; presented with creatinine 6.0
-Per nephrology would not be good PD candidate due to poor glycemic control
-Possible that this is due to advancement of underlying CKD rather than true COLLIN
Plan
-Discontinued chlorthalidone, monitor daily BMP
-Monitor urine output closely, avoid nephrotoxins
-Dialysis to start today
-Continue bicarbonate supplement
-Outpatient HD to be arranged by case management
#Normocytic anemia of CKD
-Iron panel nutritional workup here without signs of insufficiency
-Hemoglobin was 9.4 in early September, down to 7.9
-No obvious sources of bleeding noted
-Was started on EPO, hemoglobin up to 9
-Trend daily CBC
#Dyslipidemia
-No known history of ASCVD
-Home medications include moderate intensity statin
DVT prophylaxis: Subcutaneous heparin
Diet: Carb controlled
CODE STATUS: Full
Anticipated Discharge: 24 - 48 hours
Subjective/Interval History
-
Date of Service: October 25, 2024
Seen and examined at the bedside. No acute events reported overnight. AFVSS this morning
Due to start dialysis today. Spoke with patient about home versus SNF, states he would like evaluation for SNF as he feels weak. Case management aware, may require outpatient HD chair set up prior to DC
Denies any acute complaints today other than feeling weak.
Objective Data
-
Vital Signs:
Vital Signs
Temp Pulse Resp BP Pulse Ox
98.3 F 60 18 119/59 97
10/25/24 07:07 10/25/24 09:47 10/25/24 07:07 10/25/24 09:47 10/25/24 07:07
I&O
10/24/24 10/25/24 10/26/24
06:59 06:59 06:59
Intake Total 420 / 420 240 / 240
Balance 420 / 420 240 / 240
Review of Systems
-
History Source: Patient
All other systems: Reviewed and negative
Physical Exam
-
General: Well Developed, No Apparent Distress, Comfortable, Appears Chronically Ill and Other (Thin and frail)
HEENT: Normocephalic, Atraumatic, Moist Mucous Membranes, Anicteric and PERRLA
Respiratory: Clear to Auscultation and Non Labored Respirations
Cardiac: Regular Rhythm and S1/S2; Negative Murmur, Rub or Gallop
GI: Soft, Nontender, Nondistended and Normal Bowel Sounds
Musculoskeletal: No Clubbing, No Cyanosis and No Edema
Skin: Warm, Dry and Normal Turgor; Negative Rash or Jaundice
Neuro: AO x 3 and Nonfocal/Grossly Intact; Negative Tremors
Psych: Calm
--- NOTE | 2024-10-25 13:26 | TRANSFER ---
pt transferred to Rm [id number]. report given to AJ Pelaez. pt belongings sent with the pt.
[2024-10-25 14:07] LABS: Hematocrit 24.6 % (39.0-52.0); Hemoglobin 8.5 g/dL (13.0-18.0)
[2024-10-25 14:25] LABS: Blood Urea Nitrogen 58 mg/dl (9-20); Calcium 8.7 mg/dl (8.4-10.2); Carbon Dioxide 20 mmol/L (22-30); Chloride 107 mmol/L (98-107); Estimated Creatinine Clearance 10 ml/min; Glucose 194 mg/dl (70-99); Potassium 4.5 mmol/L (3.5-5.1); Sodium 138 mmol/L (135-145); eGFR 9.19
[2024-10-25] MEDS: MANNITOL 25% 12.5 GRAMS IV ×2 (14:25→15:29)
[2024-10-25] MEDS: RETACRIT 4000 UNITS IV (14:25)
--- NOTE | 2024-10-25 14:57 | W.PN.NEPH.HD ---
Assessment
-
Seen on HD. no complaints. VSS, access ok
Progress Note - Hemodialysis
-
Date of Service: October 25, 2024
Duration: 30 minutes and 2 hours
Potassium Bath: 3
Calcium Bath: 2.5
Opti-Dialyzer: 160
Ultrafiltration: Other (no)
Blood Flow: 250
Dialysate Flow: 600
Heparin: no
EPO: 4000 units
[2024-10-25] MEDS: NOVOLOG FLEXPEN SC (16:49)
[2024-10-25] MEDS: HEPARIN 4000 UNITS INTRACATH (17:08)
[2024-10-25] MEDS: PROTONIX 40 MG PO (17:21)
[2024-10-25] MEDS: LIPITOR 10 MG PO (17:21)
[2024-10-25] MEDS: CATAPRES 0.3 MG PO (17:26)
[2024-10-25] MEDS: TOPROL XL 200 MG PO (17:29)
[2024-10-25] MEDS: AVAPRO 300 MG PO (17:32)
[2024-10-25] MEDS: PROCARDIA XL (EXTENDED RELEASE) 90 MG PO (17:32)
[2024-10-25] MEDS: NOVOLOG FLEXPEN-LOW RESISTANCE 1 UNITS SC (17:34)
[2024-10-25 17:42] LABS: Glucose - Point of Care 157 mg/dl (70-99)
[2024-10-25 21:43] LABS: Glucose - Point of Care 172 mg/dl (70-99)
[2024-10-25] MEDS: LANTUS 0.5 UNITS SC (21:52)
[2024-10-26 03:00] VITALS: BP 128/63
[2024-10-26 03:09] LABS: Glucose - Point of Care 105 mg/dl (70-99)
[2024-10-26 05:38] LABS: Glucose - Point of Care 87 mg/dl (70-99)
[2024-10-26 06:00] VITALS: BMI 21.7
--- NOTE | 2024-10-26 07:05 | PN.DE.MGMTRT ---
Insulin Management
- -
10/26/2024: Diabetes management Consult Follow up
Patient admitted with elevated blood sugar, initial blood sugar was 835. PMH HTN, HLD, CKD stage V, Pseudohyponatremia 2/2 hyperglycemia, Anemia of Chronic Disease and T2DM. Patient reports he ran out of insulin 10 days ago as his co-pay was $70
instead of $35. States he has not been checking his sugars at home but recently got a CGM- Jayshree 3 but did not know how to use it.
Reports taking Basaglar 80 units at HS. He does not remember the rest of his diabetes medications. A1C 12%, Cr 5.7.0, eGFR 9.97.
10/26 Patient awake alert and oriented, able to discuss changes to diabetes regimen.
Lantus dose decreased to 50 units last HS, 3AM glucose 105 fasting glucose 87. Will further decrease HS lantus to 45 units. Will decrease AC novolog to 7 units. Patient had HD yesterday, for HD today.
Patient has Jayshree 3 @ bedside. Assisted patient to open and apply sensor. Assisted him with setting up the gely up until the point of username and password. He does have a glucose monitor at home as a backup.
Discussed with nurse.
Diabetes History
- -
Type of Diabetes: 2 requiring insulin
Pre-Admission Diabetes Regimen
10/25/24
13:50
Creatinine 6.1 H*
Lab Results
Hemoglobin A1c 12.0 % (4.0-5.6) H 10/20/24 06:40
Insulin Pump Settings
IP Diabetes Regimen
10/25/24 10/25/24 10/25/24
07:55 08:30 10:29
Glucose
POC Glucose 68 L 96 88
10/25/24 10/25/24 10/25/24
12:32 13:50 17:28
Glucose 194 H
POC Glucose 171 H 157 H
10/25/24 10/26/24 10/26/24
21:42 03:07 05:36
Glucose
POC Glucose 172 H 105 H 87
Meal type: Dinner
Meal type: Breakfast
Amount consumed: 100%
Amount consumed: 100%
Patient Education
[2024-10-26 07:35] VITALS: BP 152/117
[2024-10-26 07:49] LABS: Glucose - Point of Care 75 mg/dl (70-99)
[2024-10-26] MEDS: APRESOLINE 50 MG PO ×2 (08:31→22:22)
[2024-10-26] MEDS: NOVOLOG FLEXPEN-LOW RESISTANCE SC ×2 (08:32→19:54)
[2024-10-26] MEDS: SODIUM BICARBONATE 650 MG PO (08:32)
[2024-10-26] MEDS: HEPARIN 5000 UNITS SC ×3 (08:32→23:10)
[2024-10-26 09:18] LABS: % Basophils 0.5 % (0-2); % Eosinophils 4.1 % (0-6); % Immature Granulocytes 0.8 % (0-0.5); % Lymphocytes 16.8 % (20.5-51.1); % Monocytes 14.4 % (1.7-9.3); % Neutrophils 63.4 % (42.2-75.2); Absolute Eosinophils 0.3 10^3/uL (0-0.7); Absolute Immature Granulocytes 0.1 10^3/uL (0-0.05); Absolute Lymphocytes 1.3 10^3/uL (1.2-3.4); Absolute Monocytes 1.2 10^3/uL (0.1-0.6); Absolute Neutrophils 5.1 10^3/uL (1.4-6.5); Hematocrit 23.8 % (39.0-52.0); Hemoglobin 8.3 g/dL (13.0-18.0); Mean Corp Hgb Conc. 34.9 g/dL (33.0-37.0); Mean Corpuscular Hgb 30.9 pg (27.0-31.0); Mean Corpuscular Volume 88.5 fL (80.0-94.0); Mean Platelet Volume 9.9 fL (7.4-10.4); Nucleated Red Blood Cells % 0 % (-); Platelet Count 190 10^3/uL (130-400); Red Blood Cell Count 2.69 10^6/uL (4.70-6.10); Red Cell Dist. Width 12.3 % (11.5-14.5)
[2024-10-26 09:57] LABS: Blood Urea Nitrogen 30 mg/dl (9-20); Calcium 8.5 mg/dl (8.4-10.2); Carbon Dioxide 27 mmol/L (22-30); Chloride 103 mmol/L (98-107); Estimated Creatinine Clearance 15 ml/min; Glucose 69 mg/dl (70-99); Magnesium 2.1 mg/dl (1.6-2.3); Potassium 4.1 mmol/L (3.5-5.1); Sodium 140 mmol/L (135-145); eGFR 15.72
[2024-10-26 10:25] LABS: Hepatitis B Surface Antigen Negative (Negative)
[2024-10-26 10:43] LABS: Hepatitis B Core Ab, Total Negative (Negative); Hepatitis C Antibody Negative (Negative)
[2024-10-26] MEDS: NOVOLOG FLEXPEN SC (10:58)
[2024-10-26 11:50] VITALS: BP 151/70
[2024-10-26 12:54] LABS: Glucose - Point of Care 268 mg/dl (70-99)
--- NOTE | 2024-10-26 13:25 | W.PN.HOSP.TC ---
Today's Communication/Plan
-
Reduce Lantus to 45 units nightly, continue to titrate insulin per Accu-Chek readings
Continue hemodialysis and nephrology discretion, daily BMP here
Case management for outpatient HD chair
Blood pressure goal <150/90
Assessment / Plan
Assessment / Plan
#T2DM with hyperglycemia
#S/p mild DKA
-A1c 12% on labs here; unlikely compliant with insulin regimen as an outpatient
-Suspect his severe chronic renal insufficiency is associated with diabetic nephropathy
-Was started on long-acting and short acting insulin, has been uptitrated per ISS requirements
-Was initially increased to 80 units Lantus nightly however reduced back to 60 units after AM hypoglycemia
-Suspect that insulin requirements may continue to decrease due to new ESRD
-Diabetic team following, titrating insulin per Accu-Chek readings
-Continue with 45 units Lantus nightly, 7 units aspart with meals
-Continue to monitor Accu-Cheks with blood glucose goal 100-200
-Hypoglycemic precautions
#Resistant hypertension
-Differentials include noncompliance to meds, renal artery stenosis; less likely pheochromocytoma, carcinoid
-Poorly controlled blood pressure on multimodal regimen of clonidine, irbesartan, metoprolol, nifedipine, chlorthalidone
-Secondary hypertension workup was negative including renal duplex, metanephrines, catecholamines, renin aldosterone ratio
-C/W clonidine 0.3 PM, hydralazine 50 TID, irbesartan 300 PM, metoprolol XL 200 PM, nifedipine 90 PM
-Discontinued chlorthalidone, blood pressure has been well-controlled on current regimen
-BP goal <150/90 mm
#New onset ESRD
#COLLIN on CKD stage V
-Significant advanced CKD secondary to diabetic and hypertensive renal disease
-Has a degree of chronic metabolic acidosis, was started on PO HCO3; holding chlorthalidone
-Creatinine baseline per recent labs near 6.2; presented with creatinine 6.0
-Per nephrology would not be good PD candidate due to poor glycemic control
-Possible that this is due to advancement of underlying CKD rather than true COLLIN
-Continue bicarbonate supplement for chronic acidemia
-Continue with dialysis per nephrology
-Case management working on outpatient HD chair
#Normocytic anemia of CKD
-Iron panel nutritional workup here without signs of insufficiency
-Hemoglobin was 9.4 in early September, down to 7.9
-No obvious sources of bleeding noted
-Was started on EPO, hemoglobin up to 9
-Trend daily CBC
#Dyslipidemia
-No known history of ASCVD
-Home medications include moderate intensity statin
DVT prophylaxis: Subcutaneous heparin
Diet: Carb controlled
CODE STATUS: Full
Anticipated Discharge: > 48 hours
Subjective/Interval History
-
Date of Service: October 26, 2024
Seen and examined the bedside. No acute events reported overnight. AFVSS this morning
States he is feeling well, was having breakfast at time of my assessment.
Denies any acute complaints. States dialysis went well though he did not sleep well
Objective Data
-
Labs:
Laboratory Results
10/26/24
08:34
WBC 8.0
Hgb 8.3 L
Hct 23.8 L
Plt Count 190
Sodium 140
Potassium 4.1
Chloride 103
Carbon Dioxide 27
BUN 30 H
Creatinine 3.9 H
Glucose 69 L
Calcium 8.5
Vital Signs:
Vital Signs
Temp Pulse Resp BP Pulse Ox
98.7 F 65 16 152/117 98
10/26/24 07:35 10/26/24 08:31 10/26/24 07:35 10/26/24 08:31 10/26/24 07:35
I&O
10/25/24 10/26/24 10/27/24
06:59 06:59 06:59
Intake Total 240 / 240 360 / 360
Balance 240 / 240 360 / 360
Review of Systems
-
History Source: Patient
All other systems: Reviewed and negative
Physical Exam
-
General: Well Developed, No Apparent Distress, Comfortable and Appears Chronically Ill
HEENT: Normocephalic, Atraumatic, Moist Mucous Membranes, Anicteric and PERRLA
Respiratory: Clear to Auscultation and Non Labored Respirations
Cardiac: Regular Rhythm and S1/S2; Negative Murmur, Rub or Gallop
GI: Soft, Nontender, Nondistended and Normal Bowel Sounds
Musculoskeletal: No Clubbing, No Cyanosis and No Edema
Skin: Warm, Dry and Normal Turgor; Negative Rash
Neuro: AO x 3 and Nonfocal/Grossly Intact
Psych: Calm
Data Reviewed
-
Labs: Labs Reviewed by me and Discussed with Patient
--- NOTE | 2024-10-26 14:05 | CM ---
Addendum entered by Merle Olivarez RN 10/26/24 15:26:
[facility] Copy provided to patient and a copy placed in chart.
Addendum entered by Merle Olivarez RN 10/26/24 15:02:
[facility] Patient has a chair time set for M-W-Fs at 7:00a.m. They will need three flow sheets prior to. Patient has had one HD session thus far.
Original Note:
Reviewed the chart notes and spoke with the patient and his son at the bedside. Provided C brochure, as well as, forms to be completed to qualify for [facility] transportation. Reviewed with the patient dialysis facilities. The patient and son
selected [facility]. Faxed clinicals and lab results to [facility] ([phone]). Patient's son feels M-W-F would be best since on most of those days there is a family member available to provide transportation. Daughter is off on
Mondays, son-in-law is off Wednesdays, and son is off Fridays. Patient has received one HD session. CM continues to be available to patient/family and is monitoring medical plan for needs at discharge.
Plan: Discharge to home once outpatient HD is set.
[2024-10-26] MEDS: NOVOLOG FLEXPEN 7 UNITS SC ×2 (14:30→19:55)
[2024-10-26] MEDS: NOVOLOG FLEXPEN-LOW RESISTANCE 3 UNITS SC (14:33)
[2024-10-26 15:25] VITALS: BP 157/71
[2024-10-26] MEDS: APRESOLINE PO (16:47)
--- NOTE | 2024-10-26 16:49 | W.PN.NEPH.HD ---
Assessment
-
Patient seen on dialysis
Systolic blood pressure 164 and even ultrafiltration
Patient blood pressure has been labile
He becomes more lethargic and dizzy when blood pressure is normalized
It will take some time for him to get used to a lower mean arterial perfusion pressure
In the interim I will adjust some of his medications so that they are all not given in the evening
Dialysis will be performed again tomorrow
Progress Note - Hemodialysis
-
Date of Service: October 26, 2024
Duration: 45 minutes and 2 hours
Potassium Bath: 3
Calcium Bath: 2.5
Opti-Dialyzer: 160
Ultrafiltration: Other (even)
Blood Flow: 300
Dialysate Flow: 600
Heparin: none
EPO: none
[2024-10-26 16:54] VITALS: BP 164/78
[2024-10-26 17:28] LABS: Glucose - Point of Care 199 mg/dl (70-99)
[2024-10-26] MEDS: PROTONIX 40 MG PO (17:55)
[2024-10-26] MEDS: MANNITOL 25% 12.5 GRAMS IV (18:48)
[2024-10-26] MEDS: MANNITOL 25% IV (18:49)
[2024-10-26] MEDS: CATAPRES 0.3 MG PO (18:53)
[2024-10-26] MEDS: HEPARIN 2000 UNITS INTRACATH (19:09)
[2024-10-26 19:33] LABS: Glucose - Point of Care 112 mg/dl (70-99)
[2024-10-26] MEDS: PROCARDIA XL (EXTENDED RELEASE) 90 MG PO (19:56)
[2024-10-26] MEDS: LIPITOR 10 MG PO (20:00)
[2024-10-26] MEDS: TOPROL XL 200 MG PO (20:00)
[2024-10-26 21:39] LABS: Glucose - Point of Care 179 mg/dl (70-99)
[2024-10-26] MEDS: LANTUS 0.45 UNITS SC (22:22)
[2024-10-26 23:30] VITALS: BP 129/62
[2024-10-27 03:03] VITALS: BP 105/54
[2024-10-27 05:44] VITALS: BMI 21.3
[2024-10-27 07:28] VITALS: BP 126/60
[2024-10-27 07:41] LABS: Glucose - Point of Care 102 mg/dl (70-99)
[2024-10-27 07:44] LABS: % Basophils 0.3 % (0-2); % Eosinophils 4.4 % (0-6); % Immature Granulocytes 0.6 % (0-0.5); % Lymphocytes 15.1 % (20.5-51.1); % Neutrophils 64.6 % (42.2-75.2); Absolute Eosinophils 0.3 10^3/uL (0-0.7); Absolute Neutrophils 4.1 10^3/uL (1.4-6.5); Hematocrit 22.6 % (39.0-52.0); Hemoglobin 7.4 g/dL (13.0-18.0); Mean Corp Hgb Conc. 32.7 g/dL (33.0-37.0); Mean Corpuscular Hgb 30.3 pg (27.0-31.0); Mean Corpuscular Volume 92.6 fL (80.0-94.0); Mean Platelet Volume 9.9 fL (7.4-10.4); Nucleated Red Blood Cells % 0 % (-); Platelet Count 161 10^3/uL (130-400); Red Blood Cell Count 2.44 10^6/uL (4.70-6.10); Red Cell Dist. Width 12.5 % (11.5-14.5); White Blood Cell Count 6.3 10^3/uL (4.8-10.8)
[2024-10-27 08:22] LABS: Blood Urea Nitrogen 20 mg/dl (9-20); Calcium 8.1 mg/dl (8.4-10.2); Carbon Dioxide 32 mmol/L (22-30); Chloride 98 mmol/L (98-107); Estimated Creatinine Clearance 20 ml/min; Glucose 77 mg/dl (70-99); Potassium 4.1 mmol/L (3.5-5.1); Sodium 136 mmol/L (135-145); eGFR 21.53
[2024-10-27] MEDS: NOVOLOG FLEXPEN-LOW RESISTANCE SC (08:44)
[2024-10-27] MEDS: NOVOLOG FLEXPEN 7 UNITS SC ×3 (08:44→17:51)
[2024-10-27] MEDS: HEPARIN 5000 UNITS SC ×3 (08:44→23:17)
[2024-10-27] MEDS: APRESOLINE PO (08:45)
[2024-10-27] MEDS: RETACRIT 6000 UNITS IV (09:43)
--- NOTE | 2024-10-27 10:34 | W.PN.NEPH.HD ---
Assessment
-
Patient seen on dialysis
No complaint
HD via catheter with good blood flows
Systolic blood pressure at 147 at current UF 1.5 kg
Next dialysis will be Tuesday
Patient is cleared for discharge from nephrology standpoint although anemia worsening
Would check Hemoccult stool
Progress Note - Hemodialysis
-
Date of Service: October 27, 2024
Duration: 30 minutes and 3 hours
Potassium Bath: 3
Calcium Bath: 2.5
Opti-Dialyzer: 160
Ultrafiltration: Other (1.5 kg as blood pressure was elevated)
Blood Flow: 400
Dialysate Flow: 600
Heparin: None
EPO: 6000
[2024-10-27] MEDS: HEPARIN 3900 UNITS INTRACATH (10:54)
[2024-10-27] MEDS: AVAPRO 300 MG PO (11:31)
[2024-10-27 11:32] LABS: Glucose - Point of Care 178 mg/dl (70-99)
[2024-10-27] MEDS: NOVOLOG FLEXPEN-LOW RESISTANCE 1 UNITS SC ×2 (13:06→17:52)
--- NOTE | 2024-10-27 13:08 | W.PN.HOSP.TC ---
Today's Communication/Plan
-
Check screening test of stool and iron panel
Plan for OP HD on //
Possible discharge
Assessment / Plan
Assessment / Plan
#Normocytic anemia
-Suspect this is related to ESRD, cannot rule out underlying nutritional deficiency
-Did have normal iron panel near admission, received EPO, question if iron stores may be depleting
-He denies any known sources of abnormal bleeding including GI bleed, urinary, epistaxis
-Hemoglobin was up to 9.1 after EPO, trended down to 7.4 as of
-Has remained hemodynamically stable
Plan
-Will order heme test of the stool to rule out GI bleed
-Order iron panel and plan for supplementation if needed
-May need outpatient EPO infusions
-Trend daily CBC
#T2DM with hyperglycemia
#S/p mild DKA
-A1c 12% on labs here; unlikely compliant with insulin regimen as an outpatient
-Suspect his severe chronic renal insufficiency is associated with diabetic nephropathy
-Suspect that insulin requirements may continue to decrease due to new ESRD
-Diabetic team following, titrating insulin per Accu-Chek readings
-Continue with 45 units Lantus nightly, 7 units aspart with meals
-Continue to monitor Accu-Cheks with blood glucose goal 100-200
-Hypoglycemic precautions
#Resistant hypertension
-Differentials include noncompliance to meds, renal artery stenosis; less likely pheochromocytoma, carcinoid
-Poorly controlled blood pressure on multimodal regimen of clonidine, irbesartan, metoprolol, nifedipine, chlorthalidone
-Secondary hypertension workup was negative including renal duplex, metanephrines, catecholamines, renin aldosterone ratio
-C/W clonidine 0.3 PM, hydralazine 50 TID, irbesartan 300 PM, metoprolol XL 200 PM, nifedipine 90 PM
-Discontinued chlorthalidone, blood pressure has been well-controlled on current regimen
-BP goal <150/90 mm
#New onset ESRD
#COLLIN on CKD stage V
-Significant advanced CKD secondary to diabetic and hypertensive renal disease
-Has a degree of chronic metabolic acidosis, was started on PO HCO3; holding chlorthalidone
-Creatinine baseline per recent labs near 6.2; presented with creatinine 6.0
-Per nephrology would not be good PD candidate due to poor glycemic control
-Possible that this is due to advancement of underlying CKD rather than true COLLIN
-Continue bicarbonate supplement for chronic acidemia
-Continue with dialysis per nephrology
-Case management working on outpatient HD chair
#Dyslipidemia
-No known history of ASCVD
-Home medications include moderate intensity statin
DVT prophylaxis: Subcutaneous heparin
Diet: Carb controlled
CODE STATUS: Full
Anticipated Discharge: Within 24 hours
Subjective/Interval History
-
Date of Service: October 27, 2024
Seen and examined at the bedside with his daughter. No acute events reported overnight. AFVSS this morning. Receiving dialysis
Hemoglobin has downtrended steadily from 9-7.4 as of this morning. He denies any known bleeding or bruising.
Otherwise denies acute complaints states he feels well.
Objective Data
-
Labs:
Laboratory Results
10/27/24
06:47
WBC 6.3
Hgb 7.4 L
Hct 22.6 L
Plt Count 161
Sodium 136
Potassium 4.1
Chloride 98
Carbon Dioxide 32 H
BUN 20
Creatinine 3.0 H
Glucose 77
Calcium 8.1 L
Vital Signs:
Vital Signs
Temp Pulse Resp BP Pulse Ox
98.2 F 62 17 147/73 96
10/27/24 07:28 10/27/24 11:31 10/27/24 07:28 10/27/24 11:31 10/27/24 07:28
I&O
12/13/24 12/14/24 12/15/24
06:59 06:59 06:59
Intake Total 360 / 360 900 / 900
Balance 360 / 360 900 / 900
Review of Systems
-
History Source: Patient and Family
All other systems: Reviewed and negative
Physical Exam
-
General: Well Developed, No Apparent Distress, Comfortable and Appears Chronically Ill
HEENT: Normocephalic, Atraumatic, Moist Mucous Membranes and Anicteric
Respiratory: Clear to Auscultation and Non Labored Respirations
Cardiac: Regular Rhythm and S1/S2; Negative Murmur, Rub or Gallop
GI: Soft, Nontender, Nondistended and Normal Bowel Sounds
Musculoskeletal: No Clubbing, No Cyanosis and No Edema
Skin: Warm, Dry and Normal Turgor; Negative Rash
Neuro: AO x 3 and Nonfocal/Grossly Intact; Negative Tremors
Psych: Calm
Data Reviewed
-
Labs: Labs Reviewed by me, Discussed with Physician (Nephrology), Discussed with Nurse and Discussed with Patient
[2024-10-27 13:59] LABS: Iron 73 ug/dl (49-181)
[2024-10-27 14:08] LABS: Percent Saturation 35 % (20-50); Total Iron Binding Capacity 204 ug/dl (261-462)
[2024-10-27 15:04] LABS: Folate 7.7 ng/ml (2.76-20); Vitamin B12 489 pg/ml (239-931)
[2024-10-27] MEDS: APRESOLINE 50 MG PO ×2 (15:24→22:12)
--- NOTE | 2024-10-27 15:28 | W.PN.UPDATE ---
Update Note
Progress Note Update
Performed Hemoccult test at the bedside to assess for occult lower GI bleeding or upper GI bleeding. Testing was negative, no signs of blood within the stool for that test. Patient continues to deny any known sources of bleeding or dark stools
since he has been here. Performed iron panel, TIBC low however ferritin at 300. Suspect he has a degree of iron deficiency, would expect ferritin to be higher in the context of end-stage renal disease. He did receive EPO here with improvement of
blood counts, question if he has utilized his stored iron and is now deficient, which has led to the downtrend in his CBC.
Will start him on oral iron daily. No absolute contraindications to discharge today. Will provide CBC to be performed as OP within 3 to 5 days to reassess his hemoglobin. Results to be sent to PCP and club attendant. Will have his first dialysis
session this upcoming Tuesday. Told him to monitor his bowel movements after discharge, if he notices bright red blood or dark black tar-like stools should come back to the ED for further assessment.
[2024-10-27 15:37] VITALS: BP 177/80
--- NOTE | 2024-10-27 16:01 | CM ---
CM reviewed chart and pt with nursing-initially plan for dc today
Multiple outreach attempts to [facility] to confirm SOC at [facility] on 10/29
Numerous VMs left and no answer/response
Alerted by nursing that pt would not be able to cone picker meds due to pharmacy closure soon
Also alerted by nursing pt making suicidal remarks in room
TT/Dr Kiser with updates
CM will continue to follow up with [facility] to confirm SOC
Will remain available for MH planning as appropriate
Discharge Disposition- home with new oupt HD at [facility] HD, watch for MH needs
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
[2024-10-27 16:39] LABS: Glucose - Point of Care 168 mg/dl (70-99)
[2024-10-27] MEDS: FEOSOL 325 MG PO (16:58)
[2024-10-27] MEDS: PROTONIX 40 MG PO (16:59)
[2024-10-27] MEDS: CATAPRES 0.3 MG PO (16:59)
[2024-10-27] MEDS: PROCARDIA XL (EXTENDED RELEASE) 90 MG PO (17:03)
[2024-10-27] MEDS: LIPITOR 10 MG PO (17:51)
[2024-10-27] MEDS: TOPROL XL PO (18:04)
[2024-10-27 21:32] LABS: Glucose - Point of Care 244 mg/dl (70-99)
[2024-10-27] MEDS: LANTUS 0.45 UNITS SC (22:11)
[2024-10-27 23:05] VITALS: BP 143/65
[2024-10-28 06:59] VITALS: BP 113/56
[2024-10-28 07:08] LABS: Glucose - Point of Care 172 mg/dl (70-99)
[2024-10-28] MEDS: APRESOLINE 50 MG PO ×3 (08:24→21:59)
[2024-10-28] MEDS: FEOSOL 325 MG PO (08:24)
[2024-10-28] MEDS: NOVOLOG FLEXPEN-LOW RESISTANCE 1 UNITS SC (08:25)
[2024-10-28] MEDS: HEPARIN 5000 UNITS SC ×2 (08:25→16:39)
[2024-10-28] MEDS: AVAPRO 300 MG PO (08:25)
[2024-10-28] MEDS: NOVOLOG FLEXPEN 7 UNITS SC ×3 (08:26→18:20)
--- NOTE | 2024-10-28 10:04 | W.PN.NEPH.PH ---
Addendum entered and electronically signed by Rodolfo Kraft DO 10/28/24 10:10:
No need for oral iron I will provide IV iron with dialysis treatment with [facility]
Original Note:
Today's Communication / Plan
-
Dialysis tomorrow
Assessment/Plan
-
IMP:
Uncontrolled Diabetes Mellitus, secondary to noncompliance
Uncontrolled Hypertension
COLLIN on CKD Stage V
Anion gap metabolic acidosis
Hypokalemia
Anemia of Chronic Disease
Pseudohyponatremia secondary to hyperglycemia
Hyperlipidemia
Plan:
Dialysis tomorrow, orders provided
Blood pressure seems reasonably better controlled
OP HD planning
-
-
Date of Service: October 28, 2024
CC / HPI / ROS
-
Chief Complaint:
COLLIN with CKD
History of Present Illness:
Patient now on dialysis Tuesday
k normal
BP improving and less labile
Review of Systems:
no cp or sob
left leg still RLS symp
Labs
-
Labs:
eGFR 21.53 10/27/24 06:47
Albumin 4.5 g/dl (3.5-5.0) 10/19/24 14:03
Physical Exam
-
Vital Signs:
Vital Signs
Temp Pulse Resp BP Pulse Ox
98.7 F 68 17 113/56 98
10/28/24 06:59 10/28/24 08:25 10/28/24 06:59 10/28/24 08:25 10/28/24 06:59
Cardiovascular:: Regular rate and rhythm
Respiratory:: Bilateral: CTA
Lung Excursion:: Normal
Abdomen:: Nontender and Soft
Bowel Sounds:: Normal
Extremity Edema:: None: Bilateral:
--- NOTE | 2024-10-28 11:52 | W.PN.HOSP.TC ---
Today's Communication/Plan
-
Psych consult for today
Follow-up CBC
Plan for dialysis in the morning and possible discharge after
Assessment / Plan
Assessment / Plan
#Normocytic anemia
-Suspect this is related to ESRD, cannot rule out underlying nutritional deficiency
-Did have normal iron panel near admission, received EPO, question if iron stores may be depleting
-He denies any known sources of abnormal bleeding including GI bleed, urinary, epistaxis
-Hemoglobin was up to 9.1 after EPO, trended down to 7.4 as of
-Has remained hemodynamically stable
Plan
-Will order heme test of the stool to rule out GI bleed
-Order iron panel and plan for supplementation if needed
-May need outpatient EPO infusions
-Trend daily CBC
#T2DM with hyperglycemia
#S/p mild DKA
-A1c 12% on labs here; unlikely compliant with insulin regimen as an outpatient
-Suspect his severe chronic renal insufficiency is associated with diabetic nephropathy
-Suspect that insulin requirements may continue to decrease due to new ESRD
-Diabetic team following, titrating insulin per Accu-Chek readings
-Continue with 45 units Lantus nightly, 7 units aspart with meals
-Continue to monitor Accu-Cheks with blood glucose goal 100-200
-Hypoglycemic precautions
#Resistant hypertension
-Differentials include noncompliance to meds, renal artery stenosis; less likely pheochromocytoma, carcinoid
-Poorly controlled blood pressure on multimodal regimen of clonidine, irbesartan, metoprolol, nifedipine, chlorthalidone
-Secondary hypertension workup was negative including renal duplex, metanephrines, catecholamines, renin aldosterone ratio
-C/W clonidine 0.3 PM, hydralazine 50 TID, irbesartan 300 PM, metoprolol XL 200 PM, nifedipine 90 PM
-Discontinued chlorthalidone, blood pressure has been well-controlled on current regimen
-BP goal <150/90 mm
#New onset ESRD
#COLLIN on CKD stage V
-Significant advanced CKD secondary to diabetic and hypertensive renal disease
-Has a degree of chronic metabolic acidosis, was started on PO HCO3; holding chlorthalidone
-Creatinine baseline per recent labs near 6.2; presented with creatinine 6.0
-Per nephrology would not be good PD candidate due to poor glycemic control
-Possible that this is due to advancement of underlying CKD rather than true COLLIN
-Continue bicarbonate supplement for chronic acidemia
-Continue with dialysis per nephrology
-Case management working on outpatient HD chair
#Dyslipidemia
-No known history of ASCVD
-Home medications include moderate intensity statin
#Suicidal ideation
-Monitor mood, depression score
-Psychiatry consulted
DVT prophylaxis: Subcutaneous heparin
Diet: Carb controlled
CODE STATUS: Full
Anticipated Discharge: Within 24 hours
Subjective/Interval History
-
Date of Service: October 28, 2024
Seen and examined at the bedside. No acute events reported overnight. AFVSS this morning
Yesterday expressed a physical therapist that he had thoughts of suicide after discharge. I spoke with him at length this morning. He again reiterated that he did not have any plan to kill himself, no ideation to do it here but did have
contemplation's about suicide after discharge. He mentions that he has been looking back on the events of his life since starting dialysis. Referred to dialysis as a 'second chance at life'. We spoke about trying to focus on the positives from
his past rather than the negative experiences. Psychiatry consult is pending for today. Patient denied plan for suicide here
Denied any acute complaints.
Objective Data
-
Labs:
Laboratory Results
10/28/24
06:00
WBC Pending
Hgb Pending
Hct Pending
Plt Count Pending
Sodium Pending
Potassium Pending
Chloride Pending
Carbon Dioxide Pending
BUN Pending
Creatinine Pending
Glucose Pending
Calcium Pending
Vital Signs:
Vital Signs
Temp Pulse Resp BP Pulse Ox
98.7 F 68 17 113/56 98
10/28/24 06:59 10/28/24 08:25 10/28/24 06:59 10/28/24 08:25 10/28/24 06:59
I&O
10/27/24 10/28/24 10/29/24
06:59 06:59 06:59
Intake Total 900 / 900 720 / 720
Balance 900 / 900 720 / 720
Review of Systems
-
History Source: Patient
All other systems: Reviewed and negative
Physical Exam
-
General: Well Developed, No Apparent Distress, Comfortable and Appears Chronically Ill
HEENT: Normocephalic, Atraumatic, Moist Mucous Membranes and Anicteric
Respiratory: Clear to Auscultation and Non Labored Respirations
Cardiac: Regular Rhythm and S1/S2; Negative Murmur, Rub or Gallop
GI: Soft, Nontender, Nondistended and Normal Bowel Sounds
Musculoskeletal: No Clubbing, No Cyanosis and No Edema
Skin: Warm and Dry; Negative Rash
Neuro: AO x 3 and Nonfocal/Grossly Intact
Psych: Depressed and Suicidal (Ideation for after discharge, no plan of action)
[2024-10-28 12:18] LABS: % Basophils 0.5 % (0-2); % Immature Granulocytes 0.6 % (0-0.5); % Monocytes 15.7 % (1.7-9.3); % Neutrophils 64.2 % (42.2-75.2); Absolute Eosinophils 0.3 10^3/uL (0-0.7); Absolute Lymphocytes 0.9 10^3/uL (1.2-3.4); Hematocrit 26.2 % (39.0-52.0); Hemoglobin 8.5 g/dL (13.0-18.0); Mean Corp Hgb Conc. 32.4 g/dL (33.0-37.0); Mean Corpuscular Hgb 30.1 pg (27.0-31.0); Mean Corpuscular Volume 92.9 fL (80.0-94.0); Mean Platelet Volume 9.6 fL (7.4-10.4); Nucleated Red Blood Cells % 0 % (-); Platelet Count 166 10^3/uL (130-400); Red Blood Cell Count 2.82 10^6/uL (4.70-6.10); Red Cell Dist. Width 12.9 % (11.5-14.5); White Blood Cell Count 6.2 10^3/uL (4.8-10.8)
[2024-10-28 12:30] LABS: Blood Urea Nitrogen 18 mg/dl (9-20); Calcium 8.7 mg/dl (8.4-10.2); Carbon Dioxide 29 mmol/L (22-30); Chloride 100 mmol/L (98-107); Estimated Creatinine Clearance 18 ml/min; Glucose 174 mg/dl (70-99); Potassium 3.7 mmol/L (3.5-5.1); Sodium 138 mmol/L (135-145)
[2024-10-28 12:52] LABS: Glucose - Point of Care 221 mg/dl (70-99)
[2024-10-28] MEDS: NOVOLOG FLEXPEN-LOW RESISTANCE 2 UNITS SC ×2 (12:55→18:20)
[2024-10-28 13:36] LABS: Folate 11.3 ng/ml (2.76-20); Vitamin B12 586 pg/ml (239-931)
--- NOTE | 2024-10-28 14:19 | CHAP ---
Visited Mr. Soares at 11:10, after nurse advised that he had expressed some suicidal ideation. Forest welcomed the visit and quickly opened his heart, becoming tearful at times. He shared his feelings of remorse over his past behavior, and his
intention to apologize and seek forgiveness from his of 53 years, who is on hospice. He also wants to tell his children and grandchildren how much they mean to him. Facing life with dialysis is difficult for him, but toward the end of our
visit he seemed more accepting, saying he would go through it, 'if that is God's will.' He welcomed prayer. Emotional and spiritual support provided, along with assurance of our on-going availability.
--- NOTE | 2024-10-28 15:53 | CS.PSYCHR ---
Consult Summary - Psychiatry
-
Psychiatry consult for depression and expression of SI. 73 yo male with no mental health history who expressed SI to physical therapist. Patient states he said that because he was feeling guilty about bad decisions he had made that affected his
who is currently receiving chemo treatment for cancer. He states since then he has texted with his and expressed his apologies. She has forgiven him and he is feeling markedly better. He denies suicidal ideations at this time and states he is
looking forward to going home and seeing his family.
I spoke to his daughter Catherine [phone] who confirms above history. She states patient was likely feeling down cooped in the hospital and dealing with medical issues but that his spirits are now improved and she feels comfortable with him
coming home.
MSE- good eye contact. fluent speech. logical and goal directed. denies feeling depressed. Denies SI/HI/AVH. no delusions. fully oriented.
Past psych- denies; no past admissions or suicide attempts
D&A- denies
Social- . lives with , daughter and her family
PMH- anemia, DM2, ESRD dialysis, dyslipidemia
A/P- 73 yo male who expressed SI, now resolved after productive conversation with his and confirmed history with daughter. Psychiatrically stable and safe for discharge. Psych will sign off. please contact team with further questions or
concerns if needed.
[2024-10-28 16:35] VITALS: BP 169/81
[2024-10-28 18:05] LABS: Glucose - Point of Care 201 mg/dl (70-99)
[2024-10-28 18:17] VITALS: BP 195/84
[2024-10-28] MEDS: PROCARDIA XL (EXTENDED RELEASE) 90 MG PO (18:18)
[2024-10-28] MEDS: CATAPRES 0.3 MG PO (18:18)
[2024-10-28] MEDS: TOPROL XL 200 MG PO (18:19)
[2024-10-28] MEDS: PROTONIX 40 MG PO (18:19)
[2024-10-28] MEDS: LIPITOR 10 MG PO (18:19)
--- NOTE | 2024-10-28 18:43 | PTCARENOTE ---
Received pt @ 15:00. Pt stating eye sight feels worse than yesterday. 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 States that he is having foggy vision in left eye and that he usually get monthly
injections that he was not able to receive this month due to being 'too sick.' Scheduled antihypertensives and Novolog administered.
[2024-10-28 21:17] LABS: Glucose - Point of Care 220 mg/dl (70-99)
[2024-10-28 21:30] VITALS: BP 134/64
[2024-10-28] MEDS: LANTUS 0.45 UNITS SC (21:59)
[2024-10-28 23:57] VITALS: BP 98/58
[2024-10-29] MEDS: HEPARIN 5000 UNITS SC ×2 (01:00→11:52)
[2024-10-29 05:31] VITALS: BMI 20.8
--- NOTE | 2024-10-29 07:04 | PN.DE.MGMTRT ---
Insulin Management
- -
10/29/2024: Diabetes management Consult Follow up
Patient admitted with elevated blood sugar, initial blood sugar was 835. PMH HTN, HLD, CKD stage V, Pseudohyponatremia 2/2 hyperglycemia, Anemia of Chronic Disease and T2DM. Patient reports he ran out of insulin 10 days ago as his co-pay was $70
instead of $35. States he has not been checking his sugars at home but recently got a CGM- Jayshree 3 but did not know how to use it.
Reports taking Basaglar 80 units at HS. He does not remember the rest of his diabetes medications. A1C 12%, Cr 5.7.0, eGFR 9.97.
10/29 Patient awake alert and oriented, able to discuss changes to diabetes regimen.
Lantus dose has been decreased form 80 to 45, fasting glucose 102 - 172. Pre meal glucose 168 to 221. Will continue lantus 45 units @ hs. Will increase AC novolog yo 8 units today. If discharged today should follow 45 units lantus @ hs with
novolog 8 units AC.
Patient has Jayshree 3 @ bedside. Assisted patient to open and apply sensor. Assisted him with setting up the gely up until the point of username and password. He does have a glucose monitor at home as a backup.
Discussed with nurse.
Diabetes History
- -
Type of Diabetes: 2 requiring insulin
Pre-Admission Diabetes Regimen
10/28/24
11:56
Creatinine 3.3 H
Lab Results
Hemoglobin A1c 12.0 % (4.0-5.6) H 10/20/24 06:40
Insulin Pump Settings
IP Diabetes Regimen
10/28/24 10/28/24 10/28/24
07:03 11:56 12:50
Glucose 174 H
POC Glucose 172 H 221 H
10/28/24 10/28/24
18:04 21:15
Glucose
POC Glucose 201 H 220 H
Meal type: Dinner
Meal type: Lunch
Meal type: Breakfast
Amount consumed: 100%
Amount consumed: 100%
Amount consumed: 100%
Patient Education
[2024-10-29 07:08] VITALS: BP 144/73
[2024-10-29 07:19] LABS: Glucose - Point of Care 92 mg/dl (70-99)
[2024-10-29] MEDS: NOVOLOG FLEXPEN 8 UNITS SC ×2 (07:52→11:52)
[2024-10-29] MEDS: NOVOLOG FLEXPEN-LOW RESISTANCE SC ×2 (07:53→11:52)
[2024-10-29 08:34] LABS: Hematocrit 23.1 % (39.0-52.0); Hemoglobin 7.8 g/dL (13.0-18.0)
[2024-10-29 08:53] LABS: Carbon Dioxide 27 mmol/L (22-30); Chloride 102 mmol/L (98-107); Potassium 4.1 mmol/L (3.5-5.1); Sodium 140 mmol/L (135-145)
[2024-10-29] MEDS: FERRLECIT 125 MG IV (10:46)
[2024-10-29] MEDS: RETACRIT 10000 UNITS IV (10:46)
--- NOTE | 2024-10-29 11:19 | W.PN.NEPH.HD ---
Progress Note - Hemodialysis
-
Date of Service: October 29, 2024
Duration: 3 hours (3.5 hours)
Potassium Bath: 3
Calcium Bath: 2.5
Opti-Dialyzer: 160
Ultrafiltration: Other (1.5 L)
Blood Flow: 400
Dialysate Flow: 600
Heparin: On heparin drip
EPO: 10K
[2024-10-29] MEDS: HEPARIN 3900 UNITS INTRACATH (11:26)
--- NOTE | 2024-10-29 11:29 | W.PN.HOSP.TC ---
Today's Communication/Plan
-
dc home
OP hd
Assessment / Plan
Assessment / Plan
#Normocytic anemia
-Suspect this is related to ESRD, cannot rule out underlying nutritional deficiency
-He denies any known sources of abnormal bleeding including GI bleed, urinary, epistaxis
-Hemoglobin was up to 9.1 after EPO, trended down to 7.4 as of
-IV iron and EPO per nephrology. No active luminal bleeding noted. Blood pressure has been stable. Not on any DOAC or antiplatelet agent.
#T2DM with hyperglycemia
#S/p mild DKA
-A1c 12% on labs here; unlikely compliant with insulin regimen as an outpatient
-Suspect his severe chronic renal insufficiency is associated with diabetic nephropathy
-Suspect that insulin requirements may continue to decrease due to new ESRD
-Diabetic team following, titrating insulin per Accu-Chek readings
-Continue with 45 units Lantus nightly, 7 units aspart with meals
-Continue to monitor Accu-Cheks
-Hypoglycemic precautions. POC 90 2 AM.
#Resistant hypertension
-Differentials include noncompliance to meds, renal artery stenosis; less likely pheochromocytoma, carcinoid
-Poorly controlled blood pressure on multimodal regimen of clonidine, irbesartan, metoprolol, nifedipine, chlorthalidone
-Secondary hypertension workup was negative including renal duplex, metanephrines, catecholamines, renin aldosterone ratio
-C/W clonidine 0.3 PM, hydralazine 50 TID, irbesartan 300 PM, metoprolol XL 200 PM, nifedipine 90 PM. Discussed with nephrology continue current blood pressure regiment on discharge.
-Discontinued chlorthalidone, blood pressure has been well-controlled on current regimen
-BP goal <150/90 mm
#New onset ESRD
#COLLIN on CKD stage V
-Significant advanced CKD secondary to diabetic and hypertensive renal disease
-Has a degree of chronic metabolic acidosis, was started on PO HCO3; holding chlorthalidone
-Creatinine baseline per recent labs near 6.2; presented with creatinine 6.0
-Per nephrology would not be good PD candidate due to poor glycemic control
-Possible that this is due to advancement of underlying CKD rather than true COLLIN
-Continue with dialysis per nephrology
-Case management working on outpatient HD chair and chair time and outpatient dialysis is confirmed at [facility]. Discussed with case management.
#Dyslipidemia
-No known history of ASCVD
-Home medications include moderate intensity statin
#Suicidal ideation
-Monitor mood, depression score
-Psychiatry consulted and correspondence noted. Patient not currently suicidal and states has a good family support at home and is feeling better. In positive spirits about being discharged home today.
DVT prophylaxis: Subcutaneous heparin
Diet: Carb controlled
CODE STATUS: Full
More than 30 minutes spent in discharge including
Final examination of the patient
Summarizing hospital stay
Instructions for continuing care to all relevant caregivers
Preparation of discharge records, prescriptions, and referral forms
Total time spent (in minutes): 52
Anticipated Discharge: Today
Subjective/Interval History
-
Date of Service: October 29, 2024
seen on HD
Prolonged discussion with patient this morning. Patient denies any suicidal ideation. States he was a movement of weakness and he does not want to kill himself. States he is looking forward to going home and stay with the family.
Patient in positive spirits. As plan is for discharge later today.
Objective Data
-
Labs:
Laboratory Results
10/29/24
08:23
Hgb 7.8 L
Hct 23.1 L
Sodium 140
Potassium 4.1
Chloride 102
Carbon Dioxide 27
Vital Signs:
Vital Signs
Temp Pulse Resp BP Pulse Ox
98.1 F 65 17 144/73 98
10/29/24 07:08 10/29/24 07:08 10/29/24 07:08 10/29/24 07:08 10/29/24 07:08
I&O
10/28/24 10/29/24 10/30/24
06:59 06:59 06:59
Intake Total 720 / 720 1080 / 1080
Output Total 950 / 950
Balance 720 / 720 130 / 130
Physical Exam
-
General: Well Developed, No Apparent Distress, Comfortable and Appears Chronically Ill
HEENT: Normocephalic, Atraumatic, Moist Mucous Membranes and Anicteric
Respiratory: Clear to Auscultation and Non Labored Respirations
Cardiac: Regular Rhythm and S1/S2; Negative Murmur, Rub or Gallop
GI: Soft, Nontender, Nondistended and Normal Bowel Sounds
Musculoskeletal: No Clubbing, No Cyanosis and No Edema
Skin: Warm and Dry; Negative Rash
Neuro: Awake, AO x 3 and Nonfocal/Grossly Intact
Psych: Calm and Depressed
[2024-10-29 11:43] LABS: Glucose - Point of Care 86 mg/dl (70-99)
--- NOTE | 2024-10-29 11:45 | W.DCSUMMARY ---
Discharge Summary
Discharge Data
Date of Admission: 10/19/24
Date of Discharge: 10/29/24
-
Pending Results: No
Hospital Course
73-year-old male past medical history of primary hypertension, uncontrolled diabetes, CKD stage V, hyperlipidemia who initially presented with weakness and hyperglycemia. Patient states stopped taking insulin for approximately 10 days prior to
arrival and he did not check his sugars at home. Patient primary doctor checked her sugar and was found to be high and recommend to come to the ER. In the ER patient sugars was 835. Patient complained of polyuria and polydipsia. Patient received
aggressive insulin and patient sugar significantly improved. Patient with acidosis and was started on bicarbonate. Patient with persistent hypertension and nephrology was also consulted. Patient was started on home regimen of Lantus and Premeal
insulin was added. Patient underwent renal duplex and secondary workup for resistant hypertension found to be negative. Patient with worsening of creatinine. Nephrology was following and patient received HD catheter. Patient's sugars trended
down. Blood pressure also improved. Patient had episode of suicidal ideation. Patient was eval by psychiatry and cleared patient. Patient was not suicidal anymore prior to discharge. Patient received IV iron and EPO during per nephrology.
Patient was tolerating hemodialysis in the hospital which was new to him without any significant hemodynamic compromise. Patient was tolerating diet. In regards for anemia patient heme test was negative. Per nephrology patient will receive IV
iron. Patient without any active luminal bleeding. Patient will continue to receive EPO as outpatient by nephrology. Patient has outpatient hemodialysis unit confirmed. Patient was not suicidal anymore. Patient was tolerating diet. Blood
pressure and blood glucose improved. Patient be discharged home.
Discharge Plan
-
Patient Disposition: Home with Home Care
Discharge Diagnosis/Procedures: End Stage Renal Disease (new diagnosis)
Uncontrolled diabetes mellitus
primary Hypertension w/urgency
Anemia of chronic disease
Pseudohyponatremia secondary to hyperglycemia
Hypokalemia
Anion gap metabolic acidosis
Condition: Fair
Diet: Low Sodium and Diabetic, Carb Controlled
Additional Diets: Low potassium
Activity: As tolerated
Driving Restrictions: No driving for 24 hours
Bathing Restrictions: None
Blood Work: CBC in 3-5 days to recheck hemoglobin via primary doctor or at HD unit
Other Services: VN
Activity Restrictions/Additional Instructions:
Instructions: Dialysis and diet
Referrals:
Rodolfo Kraft DO [Active] - in two to three weeks
Tesfaye Hernandez MD [Family Provider] - in less than 1 week
Additional Discharge Medication Instructions: Check blood sugars with meals and nightly, write numbers in a booklet, and take with you to your next family doctor appointment
Prescriptions:
New
insulin glargine [Lantus Solostar U-100 Insulin] 100 unit/mL (3 mL) insulin pen
45 unit SC QPM 30 Days Qty: 13.5 0RF
insulin aspart U-100 100 unit/mL (3 mL) Insulin Pen
7 unit SC AC 30 Days Qty: 6.3 0RF
hydralazine 50 mg Tablet
50 mg PO TID 30 Days Qty: 90 0RF
(DME) blood-glucose meter [Blood Glucose Monitoring] Kit
See Rx Instructions .Route Qty: 1 0RF
Rx Instructions:
As directed
(DME) blood sugar diagnostic Strip
See Rx Instructions .Route Qty: 50 0RF
Rx Instructions:
As directed
(DME) lancets Misc
See Rx Instructions .Route Qty: 100 0RF
Rx Instructions:
As directed
Continued
atorvastatin 10 mg Tablet
10 mg PO QPM
clonidine HCl 0.3 mg Tablet
0.3 mg PO QPM
omeprazole 20 mg Capsule,Delayed Release(Dr/Ec)
20 mg PO QPM
irbesartan 300 mg Tablet
300 mg PO QPM
metoprolol succinate 200 mg Capsule,Sprinkle,Er 24hr
200 mg PO QPM
nifedipine 90 mg Tablet Extended Release
90 mg PO QPM
Discontinued
chlorthalidone 25 mg Tablet
25 mg PO QPM
insulin glargine [Basaglar KwikPen U-100 Insulin] 100 unit/mL (3 mL) Insulin Pen
80 unit SC HS
Discharge Orders:
Discharge Patient (As Directed); Ordered 10/29/24
Ordered By: Arnold Clemente
Discharge Date and Time
Discharge Date/Time: 10/29/24 14:06
Print Language: MONGOLIAN
[2024-10-29] MEDS: APRESOLINE 50 MG PO (11:51)
[2024-10-29] MEDS: AVAPRO 300 MG PO (11:52)
--- NOTE | 2024-10-29 11:59 | CM ---
Addendum entered by Merle Olivarez RN 10/29/24 12:46:
Referral for VN received. Referral sent via [facility] to [facility].
Original Note:
Reviewed the chart notes and spoke with the patient at the bedside. IMM reviewed. Patient's daughter will provide transportation. Spoke with [place] at [facility]. Faxed HD sheets to . Per Jamie, patient sent for M-W-F at [place], [facility]
chair time. CM continues to be available to patient/family and is monitoring medical plan for needs at discharge.
Plan: Discharge to home with outpatient HD at [facility].
[2024-10-29 13:32] VITALS: BP 135/85
== END 2024-10-29 14:06 | disposition home health service (06) | DRG 637 ==
LOC: 2 NORTH 20:14
PROVIDERS: Internal Medicine; Internal Medicine Nephrology; Physician Assistant Medical; Radiology Vascular & Interventional Radiology; Specialist; ADMITTING PHYSICIAN Internal Medicine; ATTENDING PHYSICIAN Hospitalist; CONSULT PHYSICIAN Internal Medicine; EMERGENCY PHYSICIAN Student in an Organized Health Care Education/Training Program; FAMILY PHYSICIAN Internal Medicine; OTHER PHYSICIAN Psychiatry & Neurology Psychiatry
PROC: 02H633Z Insertion of Infusion Device into Right Atrium, Percutaneous Approach (ICD-10-PCS; 2024-10-24)
PROC: 0JH63XZ Insertion of Tunneled Vascular Access Device into Chest Subcutaneous Tissue and Fascia, Percutaneous Approach (ICD-10-PCS; 2024-10-24)
PROC: 5A1D70Z Performance of Urinary Filtration, Intermittent, Less than 6 Hours Per Day (ICD-10-PCS; 2024-10-25)
DX: E11.10 Type 2 diabetes mellitus with ketoacidosis without coma (principal); N18.6 End stage renal disease; I12.0 Hypertensive chronic kidney disease with stage 5 chronic kidney disease or end stage renal disease; N17.9 Acute kidney failure, unspecified; R45.851 Suicidal ideations; D64.9 Anemia, unspecified; Z99.2 Dependence on renal dialysis; D63.1 Anemia in chronic kidney disease
CPT/HCPCS: 36558; 76770; 76937; 77001; 80048; 80051; 80053; 81003; 81015; 82010; 82088; 82384; 82607; 82728; 82746; 82962; 83036; 83540; 83550; 83735; 83835; 84244; 85014; 85018; 85025; 85027; 85610; 86704; 86803; 87340; 93005; 93922; 93925; 93975; 96360; 96361; 97116; 97162; 97164; 97166; 97530; 99152; 99153; 99284; C1750; G0257; J2916; Q5106

== ENCOUNTER → 2025-01-01 10:03 | Outpatient (REF) | payer MEDICARE, SELFPAY | LOC: RAD 10:03 | PROVIDERS: ATTENDING PHYSICIAN Surgery Vascular Surgery | DX: N18.6 End stage renal disease (principal); Z01.818 Encounter for other preprocedural examination | CPT/HCPCS: 93985 ==

== ENCOUNTER 2025-01-15 08:24 | Day surgery (SDC) | payer MEDICARE, SELFPAY ==
[2025-01-15] VITALS (7 sets, daily range): BP systolic 106–158; BP diastolic 54–84; BMI 21.1
[2025-01-15 08:46] LABS: Hematocrit 31.6 % (39.0-52.0); Hemoglobin 11.2 g/dL (13.0-18.0); Mean Corp Hgb Conc. 35.4 g/dL (33.0-37.0); Mean Corpuscular Hgb 30.6 pg (27.0-31.0); Mean Corpuscular Volume 86.3 fL (80.0-94.0); Mean Platelet Volume 9.8 fL (7.4-10.4); Platelet Count 173 10^3/uL (130-400); Red Blood Cell Count 3.66 10^6/uL (4.70-6.10); Red Cell Dist. Width 12.6 % (11.5-14.5); White Blood Cell Count 5.5 10^3/uL (4.8-10.8)
[2025-01-15 09:01] LABS: INR 1.06; PT 14.1 Sec (11.4-14.6)
[2025-01-15 09:02] LABS: APTT 29.8 Sec (23.4-35.0)
[2025-01-15 09:12] LABS: Blood Urea Nitrogen 39 mg/dl (9-20); Calcium 9.2 mg/dl (8.4-10.2); Carbon Dioxide 30 mmol/L (22-30); Chloride 100 mmol/L (98-107); Estimated Creatinine Clearance 10 ml/min; Glucose 174 mg/dl (70-99); Potassium 4.5 mmol/L (3.5-5.1); Sodium 139 mmol/L (135-145)
[2025-01-15] MEDS: PERIDEX 0.12% ORAL RINSE 15 ML PO (09:12)
[2025-01-15] MEDS: BACTROBAN NASAL 1 GRAM NASAL (09:12)
--- NOTE | 2025-01-15 10:45 | W.SUR.PREOP ---
Pre-Operative Surgical Note
-
I have examined this patient prior to the performance of the scheduled procedure.
The patient's condition is unchanged from the time of the current History and
Physical and the patient is able to undergo the scheduled procedure.
[2025-01-15 12:53] LABS: Glucose - Point of Care 179 mg/dl (70-99)
--- NOTE | 2025-01-15 13:06 | OR.RPT ---
Operative Report
Operative Report
Date of Operation: 01/15/2025
Pre Op Diagnosis: End-stage renal disease requiring hemodialysis
Post Op Diagnosis: End-stage renal disease requiring hemodialysis
Procedure: Left upper arm brachiobasilic arteriovenous fistula creation (first stage of a planned two-stage basilic vein transposition)
Surgeon: Fermin Lam III, MD
Industry Analyst: Boo Tovar MD, PGY4
Anesthesia: General
Complications: None
Estimated Blood Loss: 10 cc
History and Indications for Procedure: 74-year-old male with end-stage renal disease requiring hemodialysis. He is in need of permanent hemodialysis access creation
Procedure in Detail: Forest Soares was correctly identified and placed supine on the operating table. After adequate induction of anesthesia the left arm was positioned, prepped and draped in the usual sterile fashion. Preoperative antibiotics were
administered. A timeout procedure was performed with the nursing and anesthesia staff confirming the patients identity as well as the nature and laterality of the procedure.
I performed intraoperative ultrasound on the veins of the left arm. I identified the upper arm basilic vein from the elbow to the axilla. The brachial artery was also identified in the distal upper arm and proximal forearm. The appropriate site for
the incision was then identified in the distal upper arm, just proximal to the elbow.
An incision was then made in the distal upper arm. Careful sharp dissection was performed and the basilic vein exposed. Branches of the vein were ligated between ties. The brachial artery was exposed with sharp dissection. Proximal and distal
control was obtained with vessel loops.
The distal end of the basilic vein was ligated with a tie. The vein was transected and flushed proximally with heparinized saline. The vein flushed easily and without resistance. The vessel loops on the artery were secured. An arteriotomy was made
with an 11-blade. This was extended just slightly proximally and distally with Valdez scissors. The proximal and distal artery was flushed with heparinized saline. The end of the vein was spatulated slightly. An end-to-side anastomosis was performed
from the end of the basilic vein to the brachial artery with a running 7-0 Prolene. At the completion of the anastomosis the proximal vessel loop was released first. After several heartbeats the distal brachial artery loop was released. The suture
line was closely inspected and hemostasis achieved. There was an excellent thrill in the vein. There was a good pulse in the brachial artery proximal and distal to the anastomosis. There was a palpable radial pulse at the left wrist at the
conclusion of the case
The wound was irrigated with saline. Hemostasis was achieved in the wound bed. The wound was closed in multiple layers and sterile skin glue was applied.
The patient tolerated the procedure well and was taken to the PACU in stable condition.
Attestation: I was present and responsible for the entire procedure
Signed:
Fermin Lam III, MD
[facility] Vascular Surgery
[phone] (xddl)
== END 2025-01-15 14:30 | disposition home or self-care (01) ==
LOC: CATH 08:24
PROVIDERS: ATTENDING PHYSICIAN Surgery Vascular Surgery; PRIMARYCARE PHYSICIAN Internal Medicine
DX: I12.0 Hypertensive chronic kidney disease with stage 5 chronic kidney disease or end stage renal disease (principal); E11.22 Type 2 diabetes mellitus with diabetic chronic kidney disease; N18.6 End stage renal disease; Z99.2 Dependence on renal dialysis; E78.00 Pure hypercholesterolemia, unspecified; K21.9 Gastro-esophageal reflux disease without esophagitis; Z79.4 Long term (current) use of insulin
CPT/HCPCS: 36821; 80048; 82962; 85027; 85610; 85730

== ENCOUNTER → 2025-02-26 12:30 | Outpatient (REF) | payer MEDICARE, SELFPAY | LOC: RAD 12:30 | PROVIDERS: ATTENDING PHYSICIAN Physician Assistant; FAMILY PHYSICIAN Internal Medicine | DX: I77.0 Arteriovenous fistula, acquired (principal) | CPT/HCPCS: 93990 ==

== ENCOUNTER 2025-04-23 08:01 | Day surgery (SDC) | payer MEDICARE, SELFPAY ==
[2025-04-23] VITALS (11 sets, daily range): BP systolic 133–151; BP diastolic 63–72; BMI 20.9
[2025-04-23 08:32] LABS: Hematocrit 33.6 % (39.0-52.0); Hemoglobin 11.9 g/dL (13.0-18.0); Mean Corp Hgb Conc. 35.4 g/dL (33.0-37.0); Mean Corpuscular Hgb 32.4 pg (27.0-31.0); Mean Corpuscular Volume 91.6 fL (80.0-94.0); Mean Platelet Volume 9.1 fL (7.4-10.4); Platelet Count 226 10^3/uL (130-400); Red Blood Cell Count 3.67 10^6/uL (4.70-6.10); Red Cell Dist. Width 13.2 % (11.5-14.5); White Blood Cell Count 7.8 10^3/uL (4.8-10.8)
[2025-04-23] MEDS: BACTROBAN NASAL 1 GRAM NASAL (08:37)
[2025-04-23] MEDS: NSS 500 IV (08:37)
[2025-04-23] MEDS: PERIDEX 0.12% ORAL RINSE 15 ML PO (08:37)
[2025-04-23 08:41] LABS: INR 1.04; PT 13.9 Sec (11.4-14.6)
[2025-04-23 08:42] LABS: APTT 29.7 Sec (23.4-35.0)
[2025-04-23 08:43] LABS: Glucose - Point of Care 247 mg/dl (70-99)
[2025-04-23 08:52] LABS: Blood Urea Nitrogen 23 mg/dl (9-20); Calcium 9.5 mg/dl (8.4-10.2); Carbon Dioxide 32 mmol/L (22-30); Chloride 101 mmol/L (98-107); Estimated Creatinine Clearance 9 ml/min; Glucose 256 mg/dl (70-99); Potassium 4.3 mmol/L (3.5-5.1); Sodium 141 mmol/L (135-145); eGFR 8.95
[2025-04-23] MEDS: VANCOCIN 200 IV (08:57)
--- NOTE | 2025-04-23 09:27 | HP.FOC2 ---
Focused History & Physical
Chief Complaint
HPI:
Chief Complaint: ESRD
HPI / Indication for Planned Procedure: This is a 74-year-old male with significant past medical history for end-stage renal disease, diabetes, hypertension, hypercholesterolemia, GERD, and blindness who presents to [facility] for scheduled
left upper extremity transposition of basilic vein, revision of left upper extremity AV fistula with Dr. Fermin Lam III. Patient underwent left upper arm brachial basilic AV fistula creation on 01/15/2025, had subsequent ultrasound that
demonstrated well matured AV fistula and now presents for planned stage II part of procedure which is to transpose basilic vein for HD access. Patient denies recent hospitalization, trauma, and illness. Denies nausea, vomiting, fever, chills,
abdominal pain, diarrhea, and cough. He does note that he has been experiencing normal range or on the lower side blood pressure at HD access site so they have stopped his clonidine, otherwise he indicates he is at baseline health.
Relevant Past Medical History: Other (end-stage renal disease, diabetes, hypertension, hypercholesterolemia, GERD, and blindness)
Relevant Social History: Negative
Relevant Family History: Negative
Relevant Past Surgical History: Positive for (HD port placement, left upper arm brachial basilic AV fistula creation on 01/15/2025)
Review of Systems
Review of Pertinent Systems: All Systems Negative
Medication
See Medication form for detailed medications: Yes
Medication List (including Herbals & OTC):
atorvastatin 10 mg tablet 10 mg PO QPM High Cholesterol 09/19/24
irbesartan 300 mg tablet 300 mg PO QPM Blood Pressure 09/19/24
metoprolol succinate 200 mg capsule sprinkle, ext. release 24 hr 200 mg PO QPM Blood Pressure 09/19/24
omeprazole 20 mg capsule,delayed release 20 mg PO QPM Gastrointestinal Issue 09/19/24
nifedipine 90 mg tablet,extended release 90 mg PO QPM 10/19/24
insulin NPH-regular 70-30 U-100 insulin 100 unit/mL subcutaneous pen (Novolin 70-30 FlexPen U-100 Insulin) 5 unit SC MEALS 01/11/25
insulin glargine 100 unit/mL (3 mL) subcutaneous pen (Lantus Solostar U-100 Insulin) 10 unit SC HS Diabetes 01/11/25
Vitamin D3 1 tab PO MOWEFR with HD 04/22/25
sevelamer carbonate 800 mg tablet 800 mg PO AC 04/22/25
Medications Reviewed: Yes
Allergies and Reactions
Patient has Allergies: Yes
Noted Allergies and Reactions:
Allergy/AdvReac Type Severity Reaction Status Date / Time
Penicillins Allergy age 12, Verified 04/22/25 08:06
unable to
walk
Pertinent Physical Exam
All Other Systems: Negative
Head/Neck: Normal
Lungs: Normal (Bilateral lungs clear to auscultation)
Heart: Normal (RRR)
Abdomen: Normal
Extremities: Other (Left upper extremity AV fistula with positive thrill and bruit, left hand warm, +1 palpable left radial pulse)
Neurological: Normal
Diagnosis / Assessment
Assessment: 74-year-old male with end-stage renal disease requiring HD
Plan / Procedure
Plan: Will proceed with left upper extremity transposition of basilic vein as stage II of a two-stage procedure following the creation of his left upper extremity AV fistula done on 01/15/25, surgeon Dr. Fermin Lam III
Anesthesia/Sedation to be done by Anesthesia Provider: Yes
--- NOTE | 2025-04-23 11:15 | W.[place]-PDMP ---
[place]-PDMP
-
Checked the [place]- Prescription Drug Monitoring Program website, no red flags identified; safe to proceed with prescription.
[2025-04-23 11:45] LABS: Glucose - Point of Care 297 mg/dl (70-99)
[2025-04-23] MEDS: NOVOLOG vial 4 UNITS SC (12:12)
--- NOTE | 2025-04-23 13:27 | OR.RPT ---
Operative Report
Operative Report
Date of Operation: 04/23/2025
Pre Op Diagnosis: Upper extremity brachiobasilic AV fistula (status post 1st stage of planned 2 stage basilic vein transposition)
Post Op Diagnosis: Upper extremity brachiobasilic AV fistula (status post 1st stage of planned 2 stage basilic vein transposition)
Procedure: Revision of left upper extremity brachiobasilic AV fistula with transposition of the basilic vein (second stage BVT)
Surgeon: Fermin Lam III, MD
Software Quality Test Engineer: Dank Brewer MD, PGY5
Anesthesia: General
Complications: None
Estimated Blood Loss: Less than 20 cc
History and Indications for Procedure: Previous left upper extremity brachiobasilic AV fistula creation. He was brought to the operating room for revision and superficialization of the basilic vein.
Procedure in Detail: Forest Soares was correctly identified and placed supine on the operating table. After adequate induction of anesthesia left arm was abducted 90 degrees. A timeout procedure was performed with the nursing and anesthesia staff
confirming the patient's identity and the nature and laterality of the procedure. The basilic vein was marked in the upper arm with ultrasound guidance. The arm was then circumferentially prepped and draped in the usual sterile fashion. We made an
incision over the medial upper arm. The entire basilic vein was dissected with careful sharp dissection. Branches were ligated and divided between silk ties and metal clips. The vein was good caliber along the entire course and had an excellent
thrill. Once the entire vein had been carefully dissected we then created a gentle curved tunnel lateral to the incision over the bicep with a tunneling clamp. Proximal control was obtained on the vein with a curved vascular clamp. The vein was
marked and then transected near the arterial anastomosis. The vein was then brought through the tunnel carefully. The two ends of the vein were anastomosed to one another in an end-to-end fashion using a running 7-0 Prolene suture. At the completion
of the anastomosis the clamp was released and flow restored through the fistula. There was an excellent thrill in the tunnel. The suture line was inspected for hemostasis and this was achieved. The wound was irrigated with warm saline solution.
Hemostasis was achieved in the wound bed. The wound was then closed in multiple layers and skin glue was applied. The patient had an easily palpable thrill in the tunnel and a palpable radial pulse at the conclusion of the case.
Attestation: I was present and responsible for the entire procedure.
Signed:
Fermin Lam III, MD
[facility] Vascular Surgery
[phone] (cell)
== END 2025-04-23 14:35 | disposition home or self-care (01) ==
LOC: CATH 08:01
PROVIDERS: ATTENDING PHYSICIAN Surgery Vascular Surgery; PRIMARYCARE PHYSICIAN Internal Medicine
DX: Z49.01 Encounter for fitting and adjustment of extracorporeal dialysis catheter (principal); I12.0 Hypertensive chronic kidney disease with stage 5 chronic kidney disease or end stage renal disease; E11.22 Type 2 diabetes mellitus with diabetic chronic kidney disease; N18.6 End stage renal disease; Z79.4 Long term (current) use of insulin; Z79.899 Other long term (current) drug therapy; Z79.891 Long term (current) use of opiate analgesic; E78.00 Pure hypercholesterolemia, unspecified; Z88.0 Allergy status to penicillin
CPT/HCPCS: 36832; 80048; 82962; 85027; 85610; 85730; 93005